=== PATIENT | female | born 1945 | race Caucasian/White ===

== ENCOUNTER → 2016-12-31 | Outpatient (CLI) | payer MEDICARE ==
--- NOTE | 2016-12-31 07:58 | US ---
EXAMINATION TYPE: US abdomen complete DATE OF EXAM: 12/31/2016 7:41 AM COMPARISON: NONE CLINICAL HISTORY: 71-year-old female R10.84 ABD PAIN. Mid abdominal pain after meals; smoker. TECHNIQUE: Multiple sonographic images of the abdomen are obtained. FINDINGS: EXAM MEASUREMENTS: Liver Length: 14.5 cm Gallbladder Wall: 0.2 cm CBD: 0.3 cm Spleen: 8.1 cm Right Kidney: 11.4 x 5.6 x 4.5 cm Left Kidney: 10.6 x 5.7 x 5.1 cm Pancreas: No gross abnormality. Liver: There is a 1 cm cyst within the left hepatic lobe. In addition, there is a 9 mm echogenic fo cus in the posterior right hepatic lobe that shows some through transmission most typical of a halle ioma Gallbladder: No abnormal gallbladder distention, wall thickening, pericholecystic fluid, or shadowin g calculi. Evidence for sonographic Rodriguez's sign: No CBD: wnl Spleen: wnl Right Kidney: No hydronephrosis. At the midpole, there is a 1 cm echogenic area with some posterior shadowing. Left Kidney: No hydronephrosis Upper IVC: wnl Abd Aorta: No AAA. Atherosclerotic calcification noted throughout. IMPRESSION: 1. A 1 cm hyperechoic lesion within the posterior right liver lobe shows some through-transmission. T his probably represents a benign hemangioma. 2. There is an additional 1 cm echogenic area in the midpole right kidney that shows some posterior s hadowing. A central calculus and an echogenic lesion such as an AML are both in the differential. RCC can uncommonly present as an echogenic lesion. Consider renal mass protocol CT to further evaluate.
== END | disposition home or self-care (01) ==
LOC: RADUSWWP 06:48
PROVIDERS: ATTEND Internal Medicine
DX: R10.84 Generalized abdominal pain (principal)
CPT/HCPCS: 76700

== ENCOUNTER 2017-01-21 18:46 | Emergency (ER) | payer MEDICARE ==
[2017-01-21] MEDS ORDERED: SODIUM CHLORIDE 0.9% 1,000 ML IV ONE (19:14)
[2017-01-21] MEDS ORDERED: KETOROLAC 30 MG/ML 1 ML VIAL IVP STA (19:14)
[2017-01-21 19:46] LABS: Basophils % (A) 0 %; CH 33.5; CHCM 33.8; Eosinophils # (A) 0.3 k/uL (0-0.7); Eosinophils % (A) 4 %; HCT 40.3 % (34.0-46.0); HDW 2.07; HGB 13.8 gm/dL (11.4-16.0); Luc % (Auto) 2; Lymphocytes % (A) 24 %; MCHC 34.2 g/dL (31.0-37.0); MCV 99.4 fL (80.0-100.0); Mean Platelet Volume 6.6; Monocytes # (A) 0.6 k/uL (0-1.0); Monocytes % (A) 8 %; Neutrophils # (A) 5.2 k/uL (1.3-7.7); Neutrophils % (A) 62 %; RBC 4.06 m/uL (3.80-5.40); RDW 11.7 % (11.5-15.5); WBC 8.4 k/uL (3.8-10.6); WBC (Perox) 8.44
[2017-01-21 19:55] LABS: Appearance,Urine Cloudy (Clear); Bacteria,Urine Rare /hpf; Bilirubin,Urine Negative (Negative); Glucose,Urine (UA) Negative (Negative); Ketones,Urine Negative (Negative); Leukocyte Esterase,Urine Large (Negative); Mucus,Urine Rare /hpf; Nitrite,Urine Negative (Negative); Partial Thromboplastin Time 24.3 sec (22.0-30.0); Particle Count 9986; Protein,Urine Trace (Negative); RBC,Urine 2 /hpf (0-5); Specific Gravity,Urine 1.021 (1.001-1.035); Squamous Epithelial Cell,Urine 1 /hpf (0-4); UA Billing (MACRO vs. MICRO) MICRO; WBC,Urine 59 /hpf (0-5)
--- NOTE | 2017-01-21 19:56 | XR ---
EXAMINATION TYPE: XR chest 2V DATE OF EXAM: 01/21/2017 7:49 PM COMPARISON: NONE INDICATION: Breast cancer hypertension TECHNIQUE: Single frontal view of the chest is obtained. FINDINGS: The heart size is normal. The pulmonary vasculature is slightly prominent. The lungs are clear. Left axillary clips are present. IMPRESSION: 1. Mild vascular prominence. 2. No suspicious consolidation
[2017-01-21 19:57] LABS: ALT 14 U/L (9-52); AST 18 U/L (14-36); Alkaline Phosphatase 112 U/L (38-126); Amylase 78 U/L (30-110); Anion Gap 11 mmol/L; Blood Urea Nitrogen 18 mg/dL (7-17); Calcium 9.4 mg/dL (8.4-10.2); Carbon Dioxide 28 mmol/L (22-30); Chloride 99 mmol/L (98-107); Glucose 109 mg/dL (74-99); Magnesium 1.9 mg/dL (1.6-2.3); Non-African American GFR(MDRD) >60 (>60 ml/min/1.73 sqM); Potassium 3.9 mmol/L (3.5-5.1); Sodium 138 mmol/L (137-145); Total Bilirubin 0.6 mg/dL (0.2-1.3); Total Protein 7.8 g/dL (6.3-8.2)
--- NOTE | 2017-01-21 20:47 | ED ---
Arrhythmia/Palpitations HPI - General Chief Complaint: Arrhythmia/Palpitations Stated Complaint: chest pain Time Seen by Provider: 01/21/17 18:58 Source: patient Mode of arrival: wheelchair Limitations: no limitations - History of Present Illness Initial Comments: Is a 71-year-old female who presents him in [facility] for palpitations. She states that she feels like her heart is pounding beneath her left rib. She does not describe it as a tightness. She denies any shortness of breath but feels like it itches pounding. She's had this on and off for the last 4-6 months. She is seen her primary doctor about it before and was diagnosed with urinary tract infection. She denies any dysuria or hematuria. No flank pain. No lightheadedness or dizziness. No nausea or vomiting. She denies any other complaints currently. - Related Data Home Medications Medication Instructions Recorded Confirmed Aspirin [Adult Low Dose Aspirin EC] 81 mg PO DAILY 05/13/16 01/21/17 Lisinopril [Zestril] 20 mg PO DAILY 01/21/17 01/21/17 Previous Rx's Medication Instructions Recorded Naproxen [Naprosyn] 500 mg PO Q12HR PRN #30 tab 01/21/17 Sulfamethox-Tmp 800-160Mg [Bactrim 1 tab PO Q12HR #14 tab 01/21/17 DS 800-160 mg] Allergies Allergy/AdvReac Type Severity Reaction Status Date / Time No Known Allergies Allergy Verified 01/21/17 19:15 Review of Systems ROS Statement: Those systems with pertinent positive or pertinent negative responses have been documented in the HPI. ROS Other: All systems not noted in ROS Statement are negative. Past Medical History Past Medical History: Cancer, Hypertension Additional Past Medical History / Comment(s): hx breast cancer History of Any Multi-Drug Resistant Organisms: None Reported Past Surgical History: Breast Surgery Additional Past Surgical History / Comment(s): left breast lumpectomy, aj cataracts Past Anesthesia/Blood Transfusion Reactions: No Reported Reaction Past Psychological History: No Psychological Hx Reported Smoking Status: Current every day smoker Past Alcohol Use History: None Reported Additional Past Alcohol Use History / Comment(s): smokes 1 PPD for 30 yrs Past Drug Use History: None Reported - Past Family History Father Family Medical History: Cancer General Exam - General Exam Comments Initial Comments: Constitutional: Awake alert Appears comfortable Head: Normocephalic atraumatic Eyes: no conjunctival injection No scleral icterus EOMI Neck: No JVD Supple Heart: Regular rate rhythm normal S1-S2 no murmurs Lungs: Clear to auscultation bilaterally No wheezing No rales Abdomen: Soft nondistended nontender Extremities: Non edematous DP pulses intact Radial pulses intact Neuro: A&Ox3 No focal neurologic deficits Psych: Appropriate mood and affect Limitations: no limitations Course Vital Signs 01/21/17 01/21/17 18:50 21:00 Temperature 97.9 F 97.2 F L Pulse Rate 106 H 73 Respiratory 20 16 Rate Blood Pressure 129/65 132/62 O2 Sat by Pulse 96 98 Oximetry EKG Findings - EKG Comments: EKG Findings:: EKG showing a sinus rhythm with a rate of 86. No abnormal ST segment changes or T-wave inversions. QTC is 440. Other intervals are normal. No ectopy. Medical Decision Making - Medical Decision Making Is a 71-year-old female presented for palpitations. Blood work was reviewed and unremarkable for elevated troponin or any other cardiac Amount. EKG was unremarkable. The patient did have a UA that was consistent with urinary tract infection. I'm going to start on Bactrim twice a day. I also gave her Naprosyn because Toradol seemed to improve her symptoms on the emergency department. Told to follow-up with Dr. Amos. She has worsening symptoms she can return emergency Department. All questions were answered. - Lab Data Result diagrams: 01/21/17 19:36 01/21/17 19:36 Lab Results 01/21/17 01/21/17 01/21/17 Range/Units 19:14 19:36 19:36 WBC 8.4 (3.8-10.6) k/uL RBC 4.06 (3.80-5.40) m/uL Hgb 13.8 (11.4-16.0) gm/dL Hct 40.3 (34.0-46.0) % MCV 99.4 (80.0-100.0) fL MCH 34.0 (25.0-35.0) pg MCHC 34.2 (31.0-37.0) g/dL RDW 11.7 (11.5-15.5) % Plt Count 321 (150-450) k/uL Neutrophils % 62 % Lymphocytes % 24 % Monocytes % 8 % Eosinophils % 4 % Basophils % 0 % Neutrophils # 5.2 (1.3-7.7) k/uL Lymphocytes # 2.0 (1.0-4.8) k/uL Monocytes # 0.6 (0-1.0) k/uL Eosinophils # 0.3 (0-0.7) k/uL Basophils # 0.0 (0-0.2) k/uL PT 10.0 (9.0-12.0) sec INR 1.0 (<1.1) APTT 24.3 (22.0-30.0) sec Sodium (137-145) mmol/L Potassium (3.5-5.1) mmol/L Chloride (98-107) mmol/L Carbon Dioxide (22-30) mmol/L Anion Gap mmol/L BUN (7-17) mg/dL Creatinine (0.52-1.04) mg/dL Est GFR (MDRD) Af Amer (>60 ml/min/1.73 sqM) Est GFR (MDRD) Non-Af (>60 ml/min/1.73 sqM) Glucose (74-99) mg/dL Calcium (8.4-10.2) mg/dL Magnesium (1.6-2.3) mg/dL Total Bilirubin (0.2-1.3) mg/dL AST (14-36) U/L ALT (9-52) U/L Alkaline Phosphatase (38-126) U/L CK-MB (CK-2) 0.4 (0.0-2.4) ng/mL Total Protein (6.3-8.2) g/dL Albumin (3.5-5.0) g/dL Amylase (30-110) U/L Lipase (23-300) U/L Urine Color Urine Appearance (Clear) Urine pH (5.0-8.0) Ur Specific [place] (1.001-1.035) Urine Protein (Negative) Urine Glucose (UA) (Negative) Urine Ketones (Negative) Urine Blood (Negative) Urine Nitrite (Negative) Urine Bilirubin (Negative) Urine Urobilinogen (<2.0) mg/dL Ur Leukocyte Esterase (Negative) Urine RBC (0-5) /hpf Urine WBC (0-5) /hpf Ur Squamous Epith Cells (0-4) /hpf Urine Bacteria (None) /hpf Hyaline Casts (0-2) /lpf Urine Mucus (None) /hpf Urine Opiates Screen (NotDetected) Ur Oxycodone Screen (NotDetected) Urine Methadone Screen (NotDetected) Ur Propoxyphene Screen (NotDetected) Ur Barbiturates Screen (NotDetected) U Tricyclic Antidepress (NotDetected) Ur Phencyclidine Scrn (NotDetected) Ur Amphetamines Screen (NotDetected) U Methamphetamines Scrn (NotDetected) U Benzodiazepines Scrn (NotDetected) Urine Cocaine Screen (NotDetected) U Marijuana (THC) Screen (NotDetected) 01/21/17 01/21/17 Range/Units 19:36 19:36 WBC (3.8-10.6) k/uL RBC (3.80-5.40) m/uL Hgb (11.4-16.0) gm/dL Hct (34.0-46.0) % MCV (80.0-100.0) fL MCH (25.0-35.0) pg MCHC (31.0-37.0) g/dL RDW (11.5-15.5) % Plt Count (150-450) k/uL Neutrophils % % Lymphocytes % % Monocytes % % Eosinophils % % Basophils % % Neutrophils # (1.3-7.7) k/uL Lymphocytes # (1.0-4.8) k/uL Monocytes # (0-1.0) k/uL Eosinophils # (0-0.7) k/uL Basophils # (0-0.2) k/uL PT (9.0-12.0) sec INR (<1.1) APTT (22.0-30.0) sec Sodium 138 (137-145) mmol/L Potassium 3.9 (3.5-5.1) mmol/L Chloride 99 (98-107) mmol/L Carbon Dioxide 28 (22-30) mmol/L Anion Gap 11 mmol/L BUN 18 H (7-17) mg/dL Creatinine 0.78 (0.52-1.04) mg/dL Est GFR (MDRD) Af Amer >60 (>60 ml/min/1.73 sqM) Est GFR (MDRD) Non-Af >60 (>60 ml/min/1.73 sqM) Glucose 109 H (74-99) mg/dL Calcium 9.4 (8.4-10.2) mg/dL Magnesium 1.9 (1.6-2.3) mg/dL Total Bilirubin 0.6 (0.2-1.3) mg/dL AST 18 (14-36) U/L ALT 14 (9-52) U/L Alkaline Phosphatase 112 (38-126) U/L CK-MB (CK-2) (0.0-2.4) ng/mL Total Protein 7.8 (6.3-8.2) g/dL Albumin 4.6 (3.5-5.0) g/dL Amylase 78 (30-110) U/L Lipase 64 (23-300) U/L Urine Color Yellow Urine Appearance Cloudy H (Clear) Urine pH 5.0 (5.0-8.0) Ur Specific [place] 1.021 (1.001-1.035) Urine Protein Trace H (Negative) Urine Glucose (UA) Negative (Negative) Urine Ketones Negative (Negative) Urine Blood Negative (Negative) Urine Nitrite Negative (Negative) Urine Bilirubin Negative (Negative) Urine Urobilinogen 4.0 (<2.0) mg/dL Ur Leukocyte Esterase Large H (Negative) Urine RBC 2 (0-5) /hpf Urine WBC 59 H (0-5) /hpf Ur Squamous Epith Cells 1 (0-4) /hpf Urine Bacteria Rare H (None) /hpf Hyaline Casts 30 H (0-2) /lpf Urine Mucus Rare H (None) /hpf Urine Opiates Screen Not Detected (NotDetected) Ur Oxycodone Screen Not Detected (NotDetected) Urine Methadone Screen Not Detected (NotDetected) Ur Propoxyphene Screen Not Detected (NotDetected) Ur Barbiturates Screen Not Detected (NotDetected) U Tricyclic Antidepress Not Detected (NotDetected) Ur Phencyclidine Scrn Not Detected (NotDetected) Ur Amphetamines Screen Not Detected (NotDetected) U Methamphetamines Scrn Not Detected (NotDetected) U Benzodiazepines Scrn Not Detected (NotDetected) Urine Cocaine Screen Not Detected (NotDetected) U Marijuana (THC) Screen Not Detected (NotDetected) Disposition Clinical Impression: UTI (urinary tract infection), Palpitations Disposition: HOME SELF-CARE Condition: Stable Instructions: Palpitations (ED), Urinary Tract Infection in Women (ED) Prescriptions: Naproxen [Naprosyn] 500 mg PO Q12HR PRN #30 tab PRN Reason: Pain Sulfamethox-Tmp 800-160Mg [Bactrim DS 800-160 mg] 1 tab PO Q12HR #14 tab Referrals: Kendall Owen MD [Primary Care Provider] - 1-2 days
[2017-01-21 21:01] VITALS: BP 132/62; PULSE 73; RESP 16; TEMP 97.2
== END 2017-01-21 21:01 | disposition home or self-care (01) ==
LOC: EC 18:46
DX: R00.2 Palpitations (principal); R07.9 Chest pain, unspecified; I10 Essential (primary) hypertension; F17.200 Nicotine dependence, unspecified, uncomplicated; Z79.82 Long term (current) use of aspirin; Z79.899 Other long term (current) drug therapy
CPT/HCPCS: 36415; 93005; 80053; 82150; 82553; 83690; 83735; 85025; 85610; 85730; 81001; 80306; 71020; 99285; 96374; 96361; J1885

== ENCOUNTER 2019-01-27 10:31 | Emergency (ER) | payer MEDICARE ==
--- NOTE | 2019-01-27 11:25 | ED ---
General Adult HPI - General Chief complaint: Abdominal Pain Stated complaint: abdominal pain Time Seen by Provider: 01/27/19 11:12 Source: patient, RN notes reviewed, old records reviewed Mode of arrival: ambulatory Limitations: no limitations - History of Present Illness Initial comments: 73-year-old female presenting with 1 week of upper abdominal pain and back pain. Patient's symptoms began one week ago, she was seen by her primary care physician. She was diagnosed with urinary tract infection and kidney infection. She was placed on Macrobid. She states over the past week she has been on antibiotics but has failed to improve. She describes bilateral upper abdominal pain and back pain. She has no chronic medical palms, no hypertension, no diabetes, no kidney disease. She is a current smoker. She denies changes to her bowels, no vomiting or diarrhea. No reported constipation. No dysuria or hematuria. Denies chest pain. Denies dyspnea. - Related Data Home Medications Medication Instructions Recorded Confirmed Lisinopril [Zestril] 20 mg PO DAILY 01/27/19 01/27/19 Nitrofurantoin Monohyd/M-Cryst 100 mg PO Q12HR 01/27/19 01/27/19 [Macrobid] Previous Rx's Medication Instructions Recorded HYDROcodone/APAP 5-325MG [[place] 1 tab PO Q6HR PRN #12 tab 01/27/19 5-325] Omeprazole [PriLOSEC] 20 mg PO AC-BID #60 cap 01/27/19 Allergies Allergy/AdvReac Type Severity Reaction Status Date / Time No Known Allergies Allergy Verified 01/27/19 11:26 Review of Systems ROS Statement: Those systems with pertinent positive or pertinent negative responses have been documented in the HPI. ROS Other: All systems not noted in ROS Statement are negative. Past Medical History Past Medical History: Cancer, Hypertension Additional Past Medical History / Comment(s): hx breast cancer History of Any Multi-Drug Resistant Organisms: None Reported Past Surgical History: Breast Surgery Additional Past Surgical History / Comment(s): left breast lumpectomy, aj cataracts Past Anesthesia/Blood Transfusion Reactions: No Reported Reaction Past Psychological History: No Psychological Hx Reported Smoking Status: Current every day smoker Past Alcohol Use History: None Reported Past Drug Use History: None Reported - Past Family History Father Family Medical History: Cancer General Exam Limitations: no limitations General appearance: alert, in no apparent distress Head exam: Present: atraumatic, normocephalic Eye exam: Present: normal appearance, PERRL ENT exam: Present: normal exam Neck exam: Present: normal inspection. Absent: meningismus Respiratory exam: Present: normal lung sounds bilaterally. Absent: respiratory distress Cardiovascular Exam: Present: regular rate, normal rhythm GI/Abdominal exam: Present: soft. Absent: distended, tenderness, guarding Extremities exam: Present: normal inspection, normal capillary refill. Absent: pedal edema, calf tenderness Neurological exam: Present: alert, oriented X3, CN II-XII intact. Absent: motor sensory deficit Psychiatric exam: Present: normal affect, normal mood Skin exam: Present: warm, dry, intact. Absent: cyanosis, diaphoretic Course Vital Signs 01/27/19 11:07 Temperature 97.7 F Pulse Rate 95 Respiratory 18 Rate Blood Pressure 149/81 O2 Sat by Pulse 98 Oximetry - Reevaluation(s) Reevaluation #1: 01/27/19 14:02 Patient reevaluated, resting comfortably. Symptoms have improved. EKG Findings - EKG Comments: EKG Findings:: EKG: Sinus rhythm with occasional PVC, LVH, no ST segment elevation, rate of 87, IN interval 166, QRS duration 74, QTC 462 Medical Decision Making - Medical Decision Making 73-year-old female with epigastric abdominal pain. Symptoms have been ongoing for approximately one week. She has mild epigastric tenderness on exam. No rebound or guarding. Stable vitals. Workup in the emergency department reveals white blood cell count mildly elevated at 13.6, hemoglobin stable, normal electrolytes, normal liver enzymes. Troponin negative EKG nonischemic. Urinalysis negative for infection. X-ray negative for obstruction, there is a sclerotic lesion in the right femur. Patient will follow-up with her primary care physician regarding this finding. CT is obtained which is negative for acute intra-abdominal pathology. Patient offered observation with gastroenterology consultation. Patient declines, prefers outpatient follow-up. Will be prescribed proton pump inhibitor and pain medication. Please follow with primary care physician. Please return with worsening or changing symptoms. - Lab Data Result diagrams: 01/27/19 11:38 01/27/19 11:38 Lab Results 01/27/19 01/27/19 01/27/19 Range/Units 05:48 11:38 11:38 WBC 13.6 H (3.8-10.6) k/uL RBC 4.21 (3.80-5.40) m/uL Hgb 13.6 (11.4-16.0) gm/dL Hct 42.2 (34.0-46.0) % MCV 100.2 H (80.0-100.0) fL MCH 32.3 (25.0-35.0) pg MCHC 32.2 (31.0-37.0) g/dL RDW 13.1 (11.5-15.5) % Plt Count 349 (150-450) k/uL Neutrophils % 83 % Lymphocytes % 7 % Monocytes % 5 % Eosinophils % 3 % Basophils % 0 % Neutrophils # 11.2 H (1.3-7.7) k/uL Lymphocytes # 1.0 (1.0-4.8) k/uL Monocytes # 0.7 (0-1.0) k/uL Eosinophils # 0.4 (0-0.7) k/uL Basophils # 0.0 (0-0.2) k/uL PT (9.0-12.0) sec INR (<1.2) APTT (22.0-30.0) sec Sodium 138 (137-145) mmol/L Potassium 3.9 (3.5-5.1) mmol/L Chloride 102 (98-107) mmol/L Carbon Dioxide 28 (22-30) mmol/L Anion Gap 8 mmol/L BUN 14 (7-17) mg/dL Creatinine 0.51 L (0.52-1.04) mg/dL Est GFR (CKD-EPI)AfAm >90 (>60 ml/min/1.73 sqM) Est GFR (CKD-EPI)NonAf >90 (>60 ml/min/1.73 sqM) Glucose 109 H (74-99) mg/dL Plasma Lactic Acid [place] (0.7-2.0) mmol/L Calcium 9.9 (8.4-10.2) mg/dL Total Bilirubin 0.7 (0.2-1.3) mg/dL AST 17 (14-36) U/L ALT 22 (9-52) U/L Alkaline Phosphatase 93 (38-126) U/L Troponin I (0.000-0.034) ng/mL Total Protein 7.2 (6.3-8.2) g/dL Albumin 4.4 (3.5-5.0) g/dL Amylase 54 (30-110) U/L Lipase 32 (23-300) U/L Urine Color Dark Yellow Urine Appearance Clear (Clear) Urine pH 5.5 (5.0-8.0) Ur Specific [place] 1.015 (1.001-1.035) Urine Protein Negative (Negative) Urine Glucose (UA) Negative (Negative) Urine Ketones 1+ H (Negative) Urine Blood Negative (Negative) Urine Nitrite Negative (Negative) Urine Bilirubin Negative (Negative) Urine Urobilinogen <2.0 (<2.0) mg/dL Ur Leukocyte Esterase Trace H (Negative) Urine WBC 1 (0-5) /hpf Ur Squamous Epith Cells <1 (0-4) /hpf Urine Mucus Rare H (None) /hpf 01/27/19 01/27/19 01/27/19 Range/Units 11:38 11:38 11:38 WBC (3.8-10.6) k/uL RBC (3.80-5.40) m/uL Hgb (11.4-16.0) gm/dL Hct (34.0-46.0) % MCV (80.0-100.0) fL MCH (25.0-35.0) pg MCHC (31.0-37.0) g/dL RDW (11.5-15.5) % Plt Count (150-450) k/uL Neutrophils % % Lymphocytes % % Monocytes % % Eosinophils % % Basophils % % Neutrophils # (1.3-7.7) k/uL Lymphocytes # (1.0-4.8) k/uL Monocytes # (0-1.0) k/uL Eosinophils # (0-0.7) k/uL Basophils # (0-0.2) k/uL PT 9.6 (9.0-12.0) sec INR 0.9 (<1.2) APTT 24.3 (22.0-30.0) sec Sodium (137-145) mmol/L Potassium (3.5-5.1) mmol/L Chloride (98-107) mmol/L Carbon Dioxide (22-30) mmol/L Anion Gap mmol/L BUN (7-17) mg/dL Creatinine (0.52-1.04) mg/dL Est GFR (CKD-EPI)AfAm (>60 ml/min/1.73 sqM) Est GFR (CKD-EPI)NonAf (>60 ml/min/1.73 sqM) Glucose (74-99) mg/dL Plasma Lactic Acid [place] 1.1 (0.7-2.0) mmol/L Calcium (8.4-10.2) mg/dL Total Bilirubin (0.2-1.3) mg/dL AST (14-36) U/L ALT (9-52) U/L Alkaline Phosphatase (38-126) U/L Troponin I <0.012 (0.000-0.034) ng/mL Total Protein (6.3-8.2) g/dL Albumin (3.5-5.0) g/dL Amylase (30-110) U/L Lipase (23-300) U/L Urine Color Urine Appearance (Clear) Urine pH (5.0-8.0) Ur Specific [place] (1.001-1.035) Urine Protein (Negative) Urine Glucose (UA) (Negative) Urine Ketones (Negative) Urine Blood (Negative) Urine Nitrite (Negative) Urine Bilirubin (Negative) Urine Urobilinogen (<2.0) mg/dL Ur Leukocyte Esterase (Negative) Urine WBC (0-5) /hpf Ur Squamous Epith Cells (0-4) /hpf Urine Mucus (None) /hpf Disposition Clinical Impression: Abdominal pain Disposition: HOME SELF-CARE Instructions (If sedation given, give patient instructions): Abdominal Pain (ED) Prescriptions: HYDROcodone/APAP 5-325MG [[place] 5-325] 1 tab PO Q6HR PRN #12 tab PRN Reason: Pain Omeprazole [PriLOSEC] 20 mg PO AC-BID #60 cap Is patient prescribed a controlled substance at d/c from ED?: No Referrals: Kendall Owen MD [Primary Care Provider] - 1-2 days Peter Wright MD [STAFF PHYSICIAN] - 1-2 days Time of Disposition: 14:05
[2019-01-27 11:50] LABS: Basophils % (A) 0 %; Eosinophils # (A) 0.4 k/uL (0-0.7); Eosinophils % (A) 3 %; HCT 42.2 % (34.0-46.0); HGB 13.6 gm/dL (11.4-16.0); Lymphocytes % (A) 7 %; MCH 32.3 pg (25.0-35.0); MCHC 32.2 g/dL (31.0-37.0); MCV 100.2 fL (80.0-100.0); Mean Platelet Volume 7.1; Monocytes # (A) 0.7 k/uL (0-1.0); Monocytes % (A) 5 %; Neutrophils # (A) 11.2 k/uL (1.3-7.7); Neutrophils % (A) 83 %; Platelet Count 349 k/uL (150-450); RBC 4.21 m/uL (3.80-5.40); RDW 13.1 % (11.5-15.5); WBC 13.6 k/uL (3.8-10.6)
[2019-01-27 11:56] LABS: Appearance,Urine Clear (Clear); Bilirubin,Urine Negative (Negative); Blood,Urine Negative (Negative); Color,Urine Dark Yellow; Glucose,Urine (UA) Negative (Negative); Ketones,Urine 1+ (Negative); Leukocyte Esterase,Urine Trace (Negative); Mucus,Urine Rare /hpf; Nitrite,Urine Negative (Negative); PH, Urine 5.5 (5.0-8.0); Protein,Urine Negative (Negative); Specific Gravity,Urine 1.015 (1.001-1.035); Squamous Epithelial Cell,Urine <1 /hpf (0-4); Urobilinogen,Urine <2.0 mg/dL (<2.0); WBC,Urine 1 /hpf (0-5)
[2019-01-27 12:02] LABS: ALT 22 U/L (9-52); AST 17 U/L (14-36); Albumin 4.4 g/dL (3.5-5.0); Alkaline Phosphatase 93 U/L (38-126); Amylase 54 U/L (30-110); Anion Gap 8 mmol/L; Blood Urea Nitrogen 14 mg/dL (7-17); Calcium 9.9 mg/dL (8.4-10.2); Carbon Dioxide 28 mmol/L (22-30); Chloride 102 mmol/L (98-107); Glucose 109 mg/dL (74-99); Lipase 32 U/L (23-300); Potassium 3.9 mmol/L (3.5-5.1); Sodium 138 mmol/L (137-145); Total Bilirubin 0.7 mg/dL (0.2-1.3); Total Protein 7.2 g/dL (6.3-8.2)
[2019-01-27] MEDS ORDERED: PANTOPRAZOLE 40 MG/10 ML VIAL IVP STA (12:06)
[2019-01-27] MEDS ORDERED: SODIUM CHLORIDE 0.9% 500 ML 500 ML IV ONE (12:06)
[2019-01-27 12:11] LABS: INR 0.9 (<1.2); Partial Thromboplastin Time 24.3 sec (22.0-30.0); Prothrombin Time 9.6 sec (9.0-12.0)
[2019-01-27] MEDS ORDERED: MORPHINE SULFATE 4 MG/ML SYRINGE IVP STA (12:16)
--- NOTE | 2019-01-27 13:01 | XR ---
EXAMINATION TYPE: XR KUB DATE OF EXAM: 01/27/2019 12:45 PM CLINICAL HISTORY: Abdominal pain TECHNIQUE: Single upright image of the abdomen is obtained. COMPARISON: None. FINDINGS: There is a levoscoliosis of the lumbar spine. Severe multilevel degenerative changes of the lumbar spine are noted. Severe atherosclerosis is seen of the abdominal aorta and its branches. Exte nsive degenerative change of the right femoral acetabular joint and moderate of the left. Punctate ca lcifications overlying the renal shadows may represent renal arterial calcifications or nephrolithias is. No dilated large or small bowel. There is a sclerotic lesion with ill-defined borders (wide zone of transition) measuring 9 mm in the right intertrochanteric region. IMPRESSION: 1. Nonobstructive bowel gas pattern. 2. Calcifications overlying the renal shadows may represent renal arterial calcifications or calculi. 3. Right femoral sclerotic lesion is indeterminate. Comparison with any prior outside imaging for sta bility would be recommended or nuclear medicine bone scan.
--- NOTE | 2019-01-27 13:36 | CT ---
EXAMINATION TYPE: CT abdomen pelvis w con DATE OF EXAM: 01/27/2019 COMPARISON: None INDICATION: RUQ pain DLP: 487.4 mGycm, Automated exposure control for dose reduction was used. CONTRAST: 100 mL of Isovue 300. Study performed without Oral Contrast TECHNIQUE: Axial images were obtained from above the diaphragm to the pubic rami in the axial plane a t 5 mm thick sections. Reconstructed images are reviewed on the computer in the coronal plane. FINDINGS: Limited CT sections are obtained the lung bases. The lung bases are clear. CT ABDOMEN: Liver: There is a 0.9 cm hypodensity within the superior left lobe liver measuring 0 Hounsfield units compatible with a cyst. Additional ill-defined hypodensities in the lateral right mid liver which is nonspecific. Spleen: Normal Pancreas: Normal Adrenal glands: The adrenal glands are normal. Gallbladder: Normal Kidneys: No masses are evident. No hydronephrosis is present. No cysts are present. Delayed images were obtained through the kidneys, which remain unremarkable. Aorta: Vascular calcification is within the aorta. Inferior vena cava: Normal. CT PELVIS: Loops of bowel within the abdomen and pelvis are normal. Study is without oral contrast limiting bowel evaluation. Appendix: Normal as visualized. Urinary bladder: Distended. No suspicious abnormality. Genitourinary structures: Uterus appears within normal limits. Calcified fibroids are likely present on the right. Adnexal regions are clear. Osseous structures: Degenerative disc changes are through the lumbar spine. There is endplate scleros is at L4-5. IMPRESSIONS: 1. Suspected hepatic cysts. One is too small to classify as simple.
[2019-01-27 14:55] VITALS: BP 142/84; PULSE 80; RESP 16; TEMP 97.8
== END 2019-01-27 14:15 | disposition home or self-care (01) ==
LOC: EC 10:31
DX: D72.829 Elevated white blood cell count, unspecified (principal); M89.9 Disorder of bone, unspecified; M54.9 Dorsalgia, unspecified; I10 Essential (primary) hypertension; F17.200 Nicotine dependence, unspecified, uncomplicated; Z85.3 Personal history of malignant neoplasm of breast; Z90.12 Acquired absence of left breast and nipple; Z79.899 Other long term (current) drug therapy; Z53.29 Procedure and treatment not carried out because of patient's decision for other reasons
CPT/HCPCS: 36415; 93005; 80053; 82150; 83605; 83690; 84484; 85025; 85610; 85730; 81001; 74018; 74177; 99285; 96374; 96375; 96361; J2270; C9113; Q9967

== ENCOUNTER 2019-01-31 02:10 | Inpatient (IN) | payer MEDICARE ==
[2019-01-31] MEDS ORDERED: SODIUM CHLORIDE 0.9% 1,000 ML IV STA (02:11)
[2019-01-31] MEDS ORDERED: IPRATROPIUM-ALBUTEROL 3 ML NEB INHALATION STA (02:20)
[2019-01-31 02:36] LABS: HCT 43.2 % (34.0-46.0); HGB 14.1 gm/dL (11.4-16.0); MCHC 32.5 g/dL (31.0-37.0); MCV 101.4 fL (80.0-100.0); Mean Platelet Volume 6.8; Platelet Count 358 k/uL (150-450); RBC 4.26 m/uL (3.80-5.40); RDW 12.3 % (11.5-15.5); WBC 15.6 k/uL (3.8-10.6)
[2019-01-31 02:48] LABS: INR 0.9 (<1.2); Partial Thromboplastin Time 22.5 sec (22.0-30.0); Prothrombin Time 9.6 sec (9.0-12.0)
[2019-01-31 02:56] LABS: Anion Gap 10 mmol/L; Blood Urea Nitrogen 10 mg/dL (7-17); Calcium 9.9 mg/dL (8.4-10.2); Carbon Dioxide 26 mmol/L (22-30); Chloride 100 mmol/L (98-107); Glucose 127 mg/dL (74-99); Lipase 39 U/L (23-300); Sodium 136 mmol/L (137-145)
[2019-01-31 03:03] LABS: Potassium 4.2 mmol/L (3.5-5.1)
[2019-01-31 03:04] LABS: ALT 13 U/L (9-52); AST 24 U/L (14-36); Albumin 4.6 g/dL (3.5-5.0); Alkaline Phosphatase 83 U/L (38-126); Amylase <30 U/L (30-110); Total Protein 7.8 g/dL (6.3-8.2)
--- NOTE | 2019-01-31 03:24 | XR ---
EXAM: XR Chest, 2 Views CLINICAL HISTORY: ADALID TECHNIQUE: Frontal and lateral views of the chest. COMPARISON: 01/21/17 FINDINGS: Lungs: Mild diffuse interstitial opacities in both lungs. Mild centrilobular pulmonary emphysema. 9 x 20 mm opacity over lateral middle lung zone is new, may suggest underlying pulmonary nodule. Pleural space: Suspect small bilateral pleural effusion/thickening. No pneumothorax. Heart: Unremarkable. No cardiomegaly. Mediastinum: Unremarkable. Bones/joints: Osteopenia. Moderate degenerative changes. Soft tissues: Left axillary clips. IMPRESSION: 1. Bilateral pulmonary edema and less likely pneumonia. 2. Mild centrilobular pulmonary emphysema. 3. 9 x 20 mm opacity over lateral middle lung zone is new, may suggest underlying pulmonary nodule. Followup resolution is recommended. Alternatively, this can be further with chest CT in a non-urgent setting.
--- NOTE | 2019-01-31 03:25 | XR ---
EXAM: XR Abdomen, 1 View CLINICAL HISTORY: abdominal pain TECHNIQUE: Frontal supine view of the abdomen/pelvis. COMPARISON: No relevant prior studies available. FINDINGS: Gastrointestinal tract: Moderate to large amount of stool in the colon. Bones/joints: Osteopenia. Moderate degenerative changes. Mild lower lumbar scoliosis convexed to the left. IMPRESSION: No acute findings.
[2019-01-31] MEDS ORDERED: MORPHINE SULFATE 4 MG/ML SYRINGE IVP STA (03:32)
--- NOTE | 2019-01-31 03:33 | ED ---
General Adult HPI - General Chief complaint: Abdominal Pain Stated complaint: Abd Pain Time Seen by Provider: 01/31/19 02:11 Source: patient, EMS Mode of arrival: EMS Limitations: no limitations - History of Present Illness Initial comments: Katheryn is a pleasant 73-year-old female with a past medical history of breast cancer, hypertension who presents to the emergency department today via EMS for evaluation of abdominal pain and difficulty breathing. Patient was seen and evaluated in our hospital on for abdominal pain at which time she had a computed tomography scan and labs she stayed overnight was discharged home with oral narcotic pain medication. Patient reports she's been doing okay since that time. This evening her abdominal pain returned so she decided to take one of her narcotic pain medications. She reports that despite taking that she began to feel worse and then begin to have some trouble breathing. Patient thought it was because the pain in her stomach. Upon EMS arrival patient was noted be somewhat tachycardic tachypneic but without wheezing. She was given 4 mg of morphine in route to the hospital for treatment of her pain and transported to the ER. Arrival to the ER patient reports significant difficulty breathing. Patient isn't every day smoker she does have inhalers at home but denies any previous history of COPD. Patient reports feeling like she can't breathe and her heart was racing. - Related Data Home Medications Medication Instructions Recorded Confirmed Lisinopril [Zestril] 20 mg PO DAILY 01/27/19 01/27/19 Nitrofurantoin Monohyd/M-Cryst 100 mg PO Q12HR 01/27/19 01/27/19 [Macrobid] Previous Rx's Medication Instructions Recorded HYDROcodone/APAP 5-325MG [[place] 1 tab PO Q6HR PRN #12 tab 01/27/19 5-325] Omeprazole [PriLOSEC] 20 mg PO AC-BID #60 cap 01/27/19 Allergies Allergy/AdvReac Type Severity Reaction Status Date / Time No Known Allergies Allergy Verified 01/27/19 11:26 Review of Systems ROS Statement: Those systems with pertinent positive or pertinent negative responses have been documented in the HPI. ROS Other: All systems not noted in ROS Statement are negative. Past Medical History Past Medical History: Cancer, Hypertension Additional Past Medical History / Comment(s): hx breast cancer History of Any Multi-Drug Resistant Organisms: None Reported Past Surgical History: Breast Surgery Additional Past Surgical History / Comment(s): left breast lumpectomy, aj cataracts Past Anesthesia/Blood Transfusion Reactions: No Reported Reaction Past Psychological History: No Psychological Hx Reported Smoking Status: Current every day smoker Past Alcohol Use History: None Reported Past Drug Use History: None Reported - Past Family History Father Family Medical History: Cancer General Exam - General Exam Comments Initial Comments: GENERAL: Chronically ill-appearing thin female HENT: Normocephalic, Atraumatic. Neck is soft and supple. No significant lymphadenopathy is noted. Oropharynx is clear. Moist mucous membranes. Neck has full range of motion without eliciting any pain. EYES: The sclera were anicteric and conjunctiva were pink and moist. Extraocular movements were intact and pupils were equal round and reactive to light. Eyelids were unremarkable. PULMONARY: Tachypnea, wheezing in all lung rosales CARDIOVASCULAR: Tachycardic, regular ABDOMEN: Soft and nontender with normal bowel sounds. SKIN: Skin is clear with no lesions or rashes and otherwise unremarkable. NEUROLOGIC: Patient is alert and oriented x3. Cranial nerves II through XII are grossly intact. Motor and sensory are also intact. Normal speech, volume and content. Symmetrical smile. MUSCULOSKELETAL: Normal extremities with adequate strength and full range of motion. No lower extremity swelling or edema. No calf tenderness. LYMPHATICS: No significant lymphadenopathy is noted PSYCHIATRIC: Normal psychiatric evaluation. Limitations: no limitations Course Vital Signs 01/31/19 01/31/19 01/31/19 02:16 02:27 02:36 Temperature 97.0 F L Pulse Rate 116 H 118 H 120 H Respiratory 26 H 18 18 Rate Blood Pressure 129/80 O2 Sat by Pulse 94 L Oximetry 01/31/19 01/31/19 01/31/19 02:43 03:39 04:10 Temperature 97.2 F L Pulse Rate 130 H 115 H 144 H Respiratory 24 24 30 H Rate Blood Pressure 134/88 138/95 134/89 O2 Sat by Pulse 96 91 L 94 L Oximetry 01/31/19 01/31/19 01/31/19 04:22 04:28 04:43 Temperature 97.7 F Pulse Rate 147 H 142 H 144 H Respiratory 26 H 18 24 Rate Blood Pressure 130/110 136/95 O2 Sat by Pulse 95 95 95 Oximetry 01/31/19 01/31/19 01/31/19 04:50 04:55 04:58 Temperature 97.3 F L Pulse Rate 96 106 H Respiratory 24 24 24 Rate Blood Pressure 87/69 82/54 O2 Sat by Pulse 96 95 Oximetry 01/31/19 01/31/19 01/31/19 05:00 05:10 05:20 Temperature Pulse Rate 109 H 100 96 Respiratory 26 H 20 19 Rate Blood Pressure 88/72 121/85 74/53 O2 Sat by Pulse 80 L 100 100 Oximetry 01/31/19 01/31/19 01/31/19 05:30 05:50 06:01 Temperature 97.3 F L 97.3 F L Pulse Rate 91 90 94 Respiratory 20 21 23 Rate Blood Pressure 69/53 65/46 85/42 O2 Sat by Pulse 98 93 L 94 L Oximetry 01/31/19 01/31/19 01/31/19 06:24 06:33 06:45 Temperature 97.4 F L 97.4 F L Pulse Rate 82 91 92 Respiratory 27 H 24 20 Rate Blood Pressure 88/75 77/61 83/62 O2 Sat by Pulse 91 L 95 93 L Oximetry - Reevaluation(s) Reevaluation #1: I was called back to the patient's room due to recurrent episode of wheezing shortness of breath and hypoxia. Patient began complaining that she couldn't breathe and that her left arm was tingling. This happened shortly after receiving morphine at this time I do suspect the patient is actually having ALLERGIC reaction to the narcotic pain medication. Solu-Medrol Pepcid and Benadryl were ordered. Patient was placed on BiPAP with albuterol. Despite these interventions patient reported worsening tingling and then came flaccid in her left arm. A code stroke was activated. 01/31/19 04:34 Reevaluation #2: Despite BiPAP support patient was becoming increasingly altered there is concerned she was unable to protect her airway decision was made to intubate. Patient is also noted become hypotensive despite receiving IV fluid bolus she remained hypotensive the decision was made to place a right femoral central line. Patient tolerated the procedure well. Levothroid was initiated. 01/31/19 06:13 Procedures - Central Line Placement Right Femoral Consent Obtained: emergent situation Patient Placed on Monitor/Pulse Ox: Yes MD Prep: mask, gown, gloves Central Line Prep: Chlorhexidine scrub Ultrasound Used for Placement: Yes Central Line Lumen Inserted: triple Bloods Obtained for Lab: Yes Central Line Position: good blood return, all ports aspirated, flushed, capped, sutured in place with 3-0 nylon Dressing Applied: sterile gauze/tape Patient Tolerated Procedure: well Complications: none - Intubation Sedative: Etomidate Laryngoscope: Tree Size: 4 ET Tube Size: 7.5 ET Tube Uncuffed: No Tube Secured Depth (cm): 24 Tube Secured Location: lips Patient Tolerated Procedure: well Intubation Complications: none Medical Decision Making - Medical Decision Making The patient was seen and evaluated upon arrival in the emergency department. Patient had called EMS for abdominal pain in the epigastrium. Patient was evaluated for this complaint last week and discharged from the hospital. Upon arrival hospital patient appears to be having a COPD exacerbation, patient denies any formal diagnosis but is a smoker. She is wheezing having shortness of breath and is mildly tachycardic. Labs and imaging were ordered. Labs resulted with a mildly elevated lactic acid and a troponin is 0.06, patient does have a mild leukocytosis no other significant abnormalities were noted Chest x-ray for possible infiltrate versus mass, given the tachycardia and shortness of breath CT pulmonary embolism study was ordered Patient again complaining of epigastric abdominal pain, patient and requesting pain medications. Additional dose of morphine was ordered. I return to the patient's bedside for reevaluation after receiving the morphine. Patient is again tachypneic wheezing and tachycardic. Reviewing patient's responses they now feel that the patient is likely suffering from an ALLERGIC reaction to the morphine. As her wheezing and shortness of breath have occurred after each administration of narcotics today. Patient will be treated as an ALLERGIC reaction in addition she'll be placed on BiPAP. Patient is beginning to complain of tingling in her left arm initially thought this was secondary to hyperventilation however despite BiPAP support patient's left arm became flaccid and that her left leg. Patient was becoming somnolent. A code stroke was activated CT and CT angiogram of the brain were ordered and performed. Patient was also noted to be hypotensive. Patient was transferred from CT suite to resuscitation bay for further resuscitation. Patient care was discussed with neuro interventional his doctor neurovascular given the complicated history he does not feel the patient is a candidate for TPA and suspects that this may be metabolic in nature recommends Denaera for seizure prophylaxis and optimization of the patient's labs. Patient remained hypertensive despite IV fluid resuscitation and decision was made to place a central line for levophed infusion Right femoral central line was placed At this time the patient has had a CT of the brain chest and abdomen in the past week there is no acute pathology identified on any of these. Patient only has mild lab abnormalities aside from acidosis, mild elevation of her lactic acid and mild elevation of her troponin. At this time he do not have explanation for her current condition however we will plan to admit to the ICU for further monitoring. Patient care was discussed with Dr. Diaz in the television maintenance man on care who accepts the patient to the ICU. Repeat troponin was elevated at 0.7, these results were discussed with cardiology on-call Dr. Escudero who will evaluate the patient and follow-up on trending troponins. - Lab Data Result diagrams: 01/31/19 02:20 01/31/19 05:52 Lab Results 01/31/19 01/31/19 01/31/19 Range/Units 02:20 02:20 02:20 WBC 15.6 H (3.8-10.6) k/uL RBC 4.26 (3.80-5.40) m/uL Hgb 14.1 (11.4-16.0) gm/dL Hct 43.2 (34.0-46.0) % MCV 101.4 H (80.0-100.0) fL MCH 33.0 (25.0-35.0) pg MCHC 32.5 (31.0-37.0) g/dL RDW 12.3 (11.5-15.5) % Plt Count 358 (150-450) k/uL Neutrophils % (Manual) 75 % Band Neutrophils % 9 % Lymphocytes % (Manual) 13 % Monocytes % (Manual) 3 % Neutrophils # (Manual) 13.10 H (1.3-7.7) k/uL Lymphocytes # (Manual) 2.03 (1.0-4.8) k/uL Monocytes # (Manual) 0.47 (0-1.0) k/uL Nucleated RBCs 0 (0-0) /100 WBC Manual Slide Review Performed PT (9.0-12.0) sec INR (<1.2) APTT (22.0-30.0) sec Sample Site ABG pH (7.35-7.45) ABG pCO2 (35-45) mmHg ABG pO2 (83-108) mmHg ABG HCO3 (21-25) mmol/L ABG Total CO2 (19-24) mmol/L ABG O2 Saturation (94-97) % ABG Base Excess mmol/L Sonny Test FiO2 % Sodium 136 L (137-145) mmol/L Potassium 4.2 (3.5-5.1) mmol/L Chloride 100 (98-107) mmol/L Carbon Dioxide 26 (22-30) mmol/L Anion Gap 10 mmol/L BUN 10 (7-17) mg/dL Creatinine 0.43 L (0.52-1.04) mg/dL Est GFR (CKD-EPI)AfAm >90 (>60 ml/min/1.73 sqM) Est GFR (CKD-EPI)NonAf >90 (>60 ml/min/1.73 sqM) Glucose 127 H (74-99) mg/dL Lactic Ac Sepsis Rflx Plasma Lactic Acid [place] 2.2 H* (0.7-2.0) mmol/L Calcium 9.9 (8.4-10.2) mg/dL Total Bilirubin 1.0 (0.2-1.3) mg/dL AST 24 (14-36) U/L ALT 13 (9-52) U/L Alkaline Phosphatase 83 (38-126) U/L Troponin I (0.000-0.034) ng/mL Total Protein 7.8 (6.3-8.2) g/dL Albumin 4.6 (3.5-5.0) g/dL Amylase <30 L (30-110) U/L Lipase 39 (23-300) U/L Urine Color Urine Appearance (Clear) Urine pH (5.0-8.0) Ur Specific [place] (1.001-1.035) Urine Protein (Negative) Urine Glucose (UA) (Negative) Urine Ketones (Negative) Urine Blood (Negative) Urine Nitrite (Negative) Urine Bilirubin (Negative) Urine Urobilinogen (<2.0) mg/dL Ur Leukocyte Esterase (Negative) Urine RBC (0-5) /hpf Urine WBC (0-5) /hpf Urine Bacteria (None) /hpf Urine Mucus (None) /hpf 01/31/19 01/31/19 01/31/19 Range/Units 02:20 02:20 03:06 WBC (3.8-10.6) k/uL RBC (3.80-5.40) m/uL Hgb (11.4-16.0) gm/dL Hct (34.0-46.0) % MCV (80.0-100.0) fL MCH (25.0-35.0) pg MCHC (31.0-37.0) g/dL RDW (11.5-15.5) % Plt Count (150-450) k/uL Neutrophils % (Manual) % Band Neutrophils % % Lymphocytes % (Manual) % Monocytes % (Manual) % Neutrophils # (Manual) (1.3-7.7) k/uL Lymphocytes # (Manual) (1.0-4.8) k/uL Monocytes # (Manual) (0-1.0) k/uL Nucleated RBCs (0-0) /100 WBC Manual Slide Review PT 9.6 (9.0-12.0) sec INR 0.9 (<1.2) APTT 22.5 (22.0-30.0) sec Sample Site ABG pH (7.35-7.45) ABG pCO2 (35-45) mmHg ABG pO2 (83-108) mmHg ABG HCO3 (21-25) mmol/L ABG Total CO2 (19-24) mmol/L ABG O2 Saturation (94-97) % ABG Base Excess mmol/L Sonny Test FiO2 % Sodium (137-145) mmol/L Potassium (3.5-5.1) mmol/L Chloride (98-107) mmol/L Carbon Dioxide (22-30) mmol/L Anion Gap mmol/L BUN (7-17) mg/dL Creatinine (0.52-1.04) mg/dL Est GFR (CKD-EPI)AfAm (>60 ml/min/1.73 sqM) Est GFR (CKD-EPI)NonAf (>60 ml/min/1.73 sqM) Glucose (74-99) mg/dL Lactic Ac Sepsis Rflx Y Plasma Lactic Acid [place] (0.7-2.0) mmol/L Calcium (8.4-10.2) mg/dL Total Bilirubin (0.2-1.3) mg/dL AST (14-36) U/L ALT (9-52) U/L Alkaline Phosphatase (38-126) U/L Troponin I 0.068 H* (0.000-0.034) ng/mL Total Protein (6.3-8.2) g/dL Albumin (3.5-5.0) g/dL Amylase (30-110) U/L Lipase (23-300) U/L Urine Color Urine Appearance (Clear) Urine pH (5.0-8.0) Ur Specific [place] (1.001-1.035) Urine Protein (Negative) Urine Glucose (UA) (Negative) Urine Ketones (Negative) Urine Blood (Negative) Urine Nitrite (Negative) Urine Bilirubin (Negative) Urine Urobilinogen (<2.0) mg/dL Ur Leukocyte Esterase (Negative) Urine RBC (0-5) /hpf Urine WBC (0-5) /hpf Urine Bacteria (None) /hpf Urine Mucus (None) /hpf 01/31/19 01/31/19 01/31/19 Range/Units 04:45 05:14 05:52 WBC (3.8-10.6) k/uL RBC (3.80-5.40) m/uL Hgb (11.4-16.0) gm/dL Hct (34.0-46.0) % MCV (80.0-100.0) fL MCH (25.0-35.0) pg MCHC (31.0-37.0) g/dL RDW (11.5-15.5) % Plt Count (150-450) k/uL Neutrophils % (Manual) % Band Neutrophils % % Lymphocytes % (Manual) % Monocytes % (Manual) % Neutrophils # (Manual) (1.3-7.7) k/uL Lymphocytes # (Manual) (1.0-4.8) k/uL Monocytes # (Manual) (0-1.0) k/uL Nucleated RBCs (0-0) /100 WBC Manual Slide Review PT (9.0-12.0) sec INR (<1.2) APTT (22.0-30.0) sec Sample Site Left Radial ABG pH 7.13 L* (7.35-7.45) ABG pCO2 70 H (35-45) mmHg ABG pO2 101 (83-108) mmHg ABG HCO3 23 (21-25) mmol/L ABG Total CO2 26 H (19-24) mmol/L ABG O2 Saturation 95.4 (94-97) % ABG Base Excess -5.7 mmol/L Sonny Test Yes FiO2 40 % Sodium (137-145) mmol/L Potassium (3.5-5.1) mmol/L Chloride (98-107) mmol/L Carbon Dioxide (22-30) mmol/L Anion Gap mmol/L BUN (7-17) mg/dL Creatinine (0.52-1.04) mg/dL Est GFR (CKD-EPI)AfAm (>60 ml/min/1.73 sqM) Est GFR (CKD-EPI)NonAf (>60 ml/min/1.73 sqM) Glucose (74-99) mg/dL Lactic Ac Sepsis Rflx Plasma Lactic Acid [place] 2.6 H* (0.7-2.0) mmol/L Calcium (8.4-10.2) mg/dL Total Bilirubin (0.2-1.3) mg/dL AST (14-36) U/L ALT (9-52) U/L Alkaline Phosphatase (38-126) U/L Troponin I (0.000-0.034) ng/mL Total Protein (6.3-8.2) g/dL Albumin (3.5-5.0) g/dL Amylase (30-110) U/L Lipase (23-300) U/L Urine Color Yellow Urine Appearance Clear (Clear) Urine pH 5.5 (5.0-8.0) Ur Specific [place] >1.050 H (1.001-1.035) Urine Protein 1+ H (Negative) Urine Glucose (UA) Negative (Negative) Urine Ketones Trace H (Negative) Urine Blood Trace H (Negative) Urine Nitrite Negative (Negative) Urine Bilirubin Negative (Negative) Urine Urobilinogen <2.0 (<2.0) mg/dL Ur Leukocyte Esterase Negative (Negative) Urine RBC 1 (0-5) /hpf Urine WBC <1 (0-5) /hpf Urine Bacteria Rare H (None) /hpf Urine Mucus Rare H (None) /hpf 01/31/19 01/31/19 01/31/19 Range/Units 05:52 05:52 06:05 WBC (3.8-10.6) k/uL RBC (3.80-5.40) m/uL Hgb (11.4-16.0) gm/dL Hct (34.0-46.0) % MCV (80.0-100.0) fL MCH (25.0-35.0) pg MCHC (31.0-37.0) g/dL RDW (11.5-15.5) % Plt Count (150-450) k/uL Neutrophils % (Manual) % Band Neutrophils % % Lymphocytes % (Manual) % Monocytes % (Manual) % Neutrophils # (Manual) (1.3-7.7) k/uL Lymphocytes # (Manual) (1.0-4.8) k/uL Monocytes # (Manual) (0-1.0) k/uL Nucleated RBCs (0-0) /100 WBC Manual Slide Review PT (9.0-12.0) sec INR (<1.2) APTT (22.0-30.0) sec Sample Site Left Radial ABG pH 7.12 L* (7.35-7.45) ABG pCO2 61 H (35-45) mmHg ABG pO2 81 L (83-108) mmHg ABG HCO3 20 L (21-25) mmol/L ABG Total CO2 22 (19-24) mmol/L ABG O2 Saturation 91.7 L (94-97) % ABG Base Excess -9.4 mmol/L Sonny Test Yes FiO2 35 % Sodium 138 (137-145) mmol/L Potassium 3.6 (3.5-5.1) mmol/L Chloride 108 H (98-107) mmol/L Carbon Dioxide 23 (22-30) mmol/L Anion Gap 7 mmol/L BUN 9 (7-17) mg/dL Creatinine 0.47 L (0.52-1.04) mg/dL Est GFR (CKD-EPI)AfAm >90 (>60 ml/min/1.73 sqM) Est GFR (CKD-EPI)NonAf >90 (>60 ml/min/1.73 sqM) Glucose 182 H (74-99) mg/dL Lactic Ac Sepsis Rflx Plasma Lactic Acid [place] (0.7-2.0) mmol/L Calcium 7.2 L (8.4-10.2) mg/dL Total Bilirubin 0.6 (0.2-1.3) mg/dL AST 15 (14-36) U/L ALT 20 (9-52) U/L Alkaline Phosphatase 50 (38-126) U/L Troponin I 0.769 H* (0.000-0.034) ng/mL Total Protein 4.7 L (6.3-8.2) g/dL Albumin 2.6 L (3.5-5.0) g/dL Amylase (30-110) U/L Lipase (23-300) U/L Urine Color Urine Appearance (Clear) Urine pH (5.0-8.0) Ur Specific [place] (1.001-1.035) Urine Protein (Negative) Urine Glucose (UA) (Negative) Urine Ketones (Negative) Urine Blood (Negative) Urine Nitrite (Negative) Urine Bilirubin (Negative) Urine Urobilinogen (<2.0) mg/dL Ur Leukocyte Esterase (Negative) Urine RBC (0-5) /hpf Urine WBC (0-5) /hpf Urine Bacteria (None) /hpf Urine Mucus (None) /hpf Critical Care Time Critical Care Time: Yes Total Critical Care Time: 60 Disposition Clinical Impression: Respiratory failure, Lactic acidosis, Left-sided weakness, Abdominal pain, Elevated troponin, Allergic reaction caused by a drug Disposition: ADMITTED IP TO THIS [facility] Condition: Critical
[2019-01-31] MEDS ORDERED: SODIUM CHLORIDE 0.9% 1,000 ML IV SCH ×3 (03:45→09:15)
[2019-01-31 03:52] LABS: Band Neutrophils % 9 %; Lymphocytes # (M) 2.03 k/uL (1.0-4.8); Monocytes # (M) 0.47 k/uL (0-1.0); Neutrophils % (M) 75 %; Nucleated Red Blood Cells 0 /100 WBC (0-0); Total Cells Counted 100
[2019-01-31] MEDS ORDERED: FAMOTIDINE 20 MG/2 ML VIAL IV STA (04:13)
[2019-01-31] MEDS ORDERED: diphenhydrAMINE 50 MG/ML 1 ML VIAL IVP STA (04:13)
[2019-01-31] MEDS ORDERED: methylPREDNISolone SOD SUCCI 125 MG/2 ML VIAL IV STA (04:13)
[2019-01-31] MEDS ORDERED: ALBUTEROL NEBULIZED 2.5 MG/3 ML INHALATION STA (04:23)
[2019-01-31] MEDS ORDERED: NALOXONE 0.4 MG/ML 1 ML VIAL IV STA (04:33)
[2019-01-31] MEDS ORDERED: ETOMIDATE 2 MG/ML 10 ML VIAL IVP STA ×2 (04:33→05:12)
[2019-01-31] MEDS: METOPROLOL TARTRATE 5 MG/5 ML VIAL IVP SCH ×4 (04:46→12:21)
[2019-01-31 04:52] LABS: ABG Base Excess -5.7 mmol/L; ABG HCO3 23 mmol/L (21-25); ABG Oxygen Saturation 95.4 % (94-97); ABG PCO2 70 mmHg (35-45); ABG PO2 101 mmHg (83-108); ABG TCO2 26 mmol/L (19-24)
--- NOTE | 2019-01-31 04:57 | CT ---
EXAM: CT Angiography Chest With Intravenous Contrast CLINICAL HISTORY: Pain, R/O PE, SOB, DLP: 294.90 TECHNIQUE: Axial computed tomographic angiography images of the chest with 70 mL of Isovue-370 intravenous contrast using pulmonary embolism protocol. DLP is 295 mGy-cm. This CT exam was performed using one or more of the following dose reduction techniques: automated exposure control, adjustment of the mA and/or kV according to patient size, and/or use of iterative reconstruction technique. MIP reconstructed images were created and reviewed. Coronal and sagittal reformatted images were created and reviewed. COMPARISON: No relevant prior studies available. FINDINGS: Pulmonary arteries: Unremarkable. No pulmonary embolism. Aorta: Large amount of atherosclerotic calcifications. Lungs: Moderate to severe centrilobular pulmonary emphysema. Septal thickening throughout both lungs may suggest minimal pulmonary edema. No mass. Pleural space: Unremarkable. No significant effusion. No pneumothorax. Heart: Unremarkable. No cardiomegaly. No significant pericardial effusion. No evidence of RV dysfunction. Bones/joints: Osteopenia. Moderate degenerative changes. Mild mid lumbar scoliosis convexed to the left. Soft tissues: Unremarkable. Lymph nodes: Unremarkable. No enlarged lymph nodes. Liver: 12 mm hypodensity in the left lobe of the liver, likely cyst or hemangioma. Kidneys and ureters: Small nonobstructing bilateral renal stones, measuring up to 6 mm, versus vascular calcifications. IMPRESSION: 1. No pulmonary embolism. No thoracic aortic aneurysm or dissection. 2. Moderate to severe centrilobular pulmonary emphysema. 3. Septal thickening throughout both lungs may suggest minimal pulmonary edema.
[2019-01-31] MEDS ORDERED: PROPOFOL 1,000 MG in EMPTY BAG 1 BAG IV ONE (05:08)
--- NOTE | 2019-01-31 05:14 | CT ---
EXAM: CT Head Without Intravenous Contrast CLINICAL HISTORY: After Chest study, patient has left leg and left arm paralysis, confused mental state TECHNIQUE: Axial computed tomography images of the head/brain without intravenous contrast. DLP is 1149 mGy-cm. This CT exam was performed using one or more of the following dose reduction techniques: automated exposure control, adjustment of the mA and/or kV according to patient size, and/or use of iterative reconstruction technique. Coronal and sagittal reconstructions are performed. COMPARISON: No relevant prior studies available. FINDINGS: Residual IV contrast from CT chest is visible Brain: Mild to moderate chronic small vessel ischemic changes. 11 mm hypodensity of left cerebellum, likely represents an old lacunar infarct versus neuroglial cyst. No hemorrhage. No abnormal enhancement. Ventricles: Unremarkable. No ventriculomegaly. Bones/joints: Unremarkable. No acute fracture. Soft tissues: Unremarkable. Sinuses: Small polyp versus retention cyst of right maxillary sinus. Mastoid air cells: Unremarkable as visualized. No mastoid effusion. Orbits: Bilateral cataract surgeries. IMPRESSION: No acute intracranial infarct. If acute intracranial infarction remains a concern, MRI may help to further evaluate if patient candidate.
[2019-01-31] MEDS ORDERED: SODIUM CHLORIDE 0.9% 1,000 ML IV ONE ×2 (05:16→05:39)
[2019-01-31] MEDS ORDERED: MIDAZOLAM 1 MG/ML 5 ML VIAL IV STA ×3 (05:16→06:13)
--- NOTE | 2019-01-31 05:30 | XR ---
EXAM: XR Chest, 1 View CLINICAL HISTORY: intubation TECHNIQUE: Frontal view of the chest. COMPARISON: 01/21/2017, same day from 300 hours FINDINGS: Lungs: Moderate diffuse interstitial and airspace opacities throughout both lungs, slightly increased. Pleural space: Unremarkable. No pneumothorax. Heart: Unremarkable. No cardiomegaly. Mediastinum: Unremarkable. Bones/joints: Osteopenia. Soft tissues: Left axillary clips. Vasculature: Calcified aorta. Tubes, lines and devices: Tip of enteric tube is just above the level of GE junction. Tip of endotracheal tube is about 6.7 cm above the petros. IMPRESSION: 1. Tip of enteric tube is just above the level of GE junction. Recommend advancement by at least 12 cm. 2. moderate pulmonary edema, slightly worse
[2019-01-31 05:35] LABS: ABG PH 7.13 (7.35-7.45)
[2019-01-31 05:39] LABS: Appearance,Urine Clear (Clear); Bacteria,Urine Rare /hpf; Bilirubin,Urine Negative (Negative); Blood,Urine Trace (Negative); Color,Urine Yellow; Glucose,Urine (UA) Negative (Negative); Ketones,Urine Trace (Negative); Leukocyte Esterase,Urine Negative (Negative); Mucus,Urine Rare /hpf; Nitrite,Urine Negative (Negative); PH, Urine 5.5 (5.0-8.0); Protein,Urine 1+ (Negative); RBC,Urine 1 /hpf (0-5); Urobilinogen,Urine <2.0 mg/dL (<2.0); WBC,Urine <1 /hpf (0-5)
[2019-01-31] MEDS ORDERED: NOREPINEPHRINE 4 MG in SODIUM CHLORIDE 0.9% 250 ML IV ONE (05:45)
--- NOTE | 2019-01-31 05:45 | CT ---
EXAM: CT Angiography Head With Intravenous Contrast CLINICAL HISTORY: After Chest study, patient has left leg and left arm paralysis, confused mental state TECHNIQUE: Axial computed tomographic angiography images of the head with intravenous contrast using CT angiography protocol. DLP is 372.4 mGy-cm. This CT exam was performed using one or more of the following dose reduction techniques: automated exposure control, adjustment of the mA and/or kV according to patient size, and/or use of iterative reconstruction technique. MIP reconstructed images were created and reviewed. Coronal and sagittal reformatted images were created and reviewed. COMPARISON: No relevant prior studies available. FINDINGS: Right internal carotid artery: No acute findings. Intracranial segment is patent with no significant stenosis. No aneurysm. Right anterior cerebral artery: Unremarkable. No occlusion or significant stenosis. No aneurysm. Right middle cerebral artery: Unremarkable. No occlusion or significant stenosis. No aneurysm. Right posterior cerebral artery: Unremarkable. No occlusion or significant stenosis. No aneurysm. Right vertebral artery: Unremarkable as visualized. Left internal carotid artery: No acute findings. Intracranial segment is patent with no significant stenosis. No aneurysm. Left anterior cerebral artery: Unremarkable. No occlusion or significant stenosis. No aneurysm. Left middle cerebral artery: Unremarkable. No occlusion or significant stenosis. No aneurysm. Left posterior cerebral artery: Unremarkable. No occlusion or significant stenosis. No aneurysm. Left vertebral artery: Unremarkable as visualized. Basilar artery: Unremarkable. No occlusion or significant stenosis. No aneurysm. IMPRESSION: No focal intracranial vascular abnormality EXAM: CT Angiography Neck With Intravenous Contrast CLINICAL HISTORY: After Chest study, patient has left leg and left arm paralysis, confused mental state TECHNIQUE: Axial computed tomographic angiography images of the neck with intravenous contrast using CT angiography protocol. DLP is 372.4 mGy-cm. This CT exam was performed using one or more of the following dose reduction techniques: automated exposure control, adjustment of the mA and/or kV according to patient size, and/or use of iterative reconstruction technique. MIP reconstructed images were created and reviewed. Coronal and sagittal reformatted images were created and reviewed. COMPARISON: No relevant prior studies available. FINDINGS: VASCULATURE: Large amount of atherosclerotic calcifications, concentrated in carotid bulb and proximal internal carotid arteries bilaterally. Right common carotid artery: Unremarkable. No significant stenosis. No dissection or occlusion. Right internal carotid artery: Moderate to severe (60-80%) stenosis of 9 mm segment of proximal internal carotid artery which is heavily calcified, best seen on series 501 image 60 to 61. No dissection or occlusion. Right external carotid artery: Unremarkable. No occlusion. Right vertebral artery: Unremarkable. No significant stenosis. No dissection or occlusion. Left common carotid artery: Unremarkable. No significant stenosis. No dissection or occlusion. Left internal carotid artery: Mild to moderate (50-60%) stenosis of proximal internal carotid artery about 1 cm near the takeoff best seen on series 501 image 62 and series 5, with 3 image 10. Left external carotid artery: Unremarkable. No occlusion. Left vertebral artery: Unremarkable. No significant stenosis. No dissection or occlusion. NECK: Bones/joints: Moderate degenerative disc disease.. Soft tissues: Unremarkable as visualized. No mass. Pleural space: small bilateral pleural effusions. CAROTID STENOSIS REFERENCE USING NASCET CRITERIA: % ICA stenosis = (1 - narrowest ICA diameter/diameter of distal cervical ICA) x 100. Mild - <50% stenosis. Moderate - 50-69% stenosis. Severe - 70-94% stenosis. Near occlusion - 95-99% stenosis. Occluded - 100% stenosis. IMPRESSION: Moderate to severe (60-80%) stenosis of 9 mm segment of proximal right internal carotid artery Mild to moderate (50-60%) stenosis of proximal right internal carotid artery at about 1 cm from the takeoff. Conventional angiogram may help to further evaluate if clinically indicated small bilateral pleural effusions.
[2019-01-31] MEDS ORDERED: levETIRAcetam IV 1,000 MG in SALINE 1 100ML.BAG IVPB SCH (06:00)
[2019-01-31] MEDS ORDERED: IPRATROPIUM-ALBUTEROL 3 ML NEB INHALATION PRN (06:07)
[2019-01-31] MEDS ORDERED: NALOXONE 0.4 MG/ML 1 ML VIAL IV PRN (06:07)
[2019-01-31] MEDS ORDERED: ARTIFICIAL TEARS-HYPROMELLOSE DROPS 15 ML BTL BOTH EYES PRN (06:07)
[2019-01-31 06:12] LABS: ABG Base Excess -9.4 mmol/L; ABG HCO3 20 mmol/L (21-25); ABG Oxygen Saturation 91.7 % (94-97); ABG PCO2 61 mmHg (35-45); ABG PO2 81 mmHg (83-108); ABG TCO2 22 mmol/L (19-24)
[2019-01-31 06:22] LABS: ALT 20 U/L (9-52); AST 15 U/L (14-36); Albumin 2.6 g/dL (3.5-5.0); Alkaline Phosphatase 50 U/L (38-126); Anion Gap 7 mmol/L; Blood Urea Nitrogen 9 mg/dL (7-17); Calcium 7.2 mg/dL (8.4-10.2); Carbon Dioxide 23 mmol/L (22-30); Chloride 108 mmol/L (98-107); Glucose 182 mg/dL (74-99); Potassium 3.6 mmol/L (3.5-5.1); Sodium 138 mmol/L (137-145); Total Bilirubin 0.6 mg/dL (0.2-1.3); Total Protein 4.7 g/dL (6.3-8.2)
[2019-01-31 06:31] LABS: Specific Gravity,Urine >1.050 (1.001-1.035)
[2019-01-31 06:42] LABS: ABG PH 7.12 (7.35-7.45)
[2019-01-31 07:14] LABS: Glucose,Whole Blood 148 mg/dL (75-99)
[2019-01-31 08:47] LABS: ABG Base Excess -8.2 mmol/L; ABG HCO3 19 mmol/L (21-25); ABG Oxygen Saturation 94.2 % (94-97); ABG PCO2 46 mmHg (35-45); ABG PH 7.24 (7.35-7.45); ABG PO2 82 mmHg (83-108); ABG TCO2 21 mmol/L (19-24)
[2019-01-31] MEDS ORDERED: PANTOPRAZOLE 40 MG/10 ML VIAL IV SCH (09:00)
[2019-01-31] MEDS ORDERED: PIPERACILLIN-TAZOBACTAM 3.375 GM in SODIUM CHLORIDE 0.9% 100 ML IVPB SCH (09:00)
[2019-01-31 09:06] VITALS: TEMP 98.2
--- NOTE | 2019-01-31 10:34 | P.CNPUL ---
History of Present Illness Consult date: 01/31/19 Reason for consult: other (Acute hypercapnic respiratory failure) Chief complaint: Abdominal pain History of present illness: This is a 73-year-old female with history of COPD, breast cancer, hypertension, seen in the ER last , 3 days ago complaining of abdominal pain. She had a full workup in the ER, including a CT of the abdomen and pelvis, multiple labs were done, and the patient was in the hospital basically overnight, she was discharged the following day on oral narcotics for pain control. However the workup for abdominal pain was basically nondiagnostic. Patient was doing fairly well until last night, she developed worsening abdominal pain mostly in the epigastric region, and she took her narcotic pain medication, however her pain became much worse. Patient was also complaining of some shortness of breath. EMS arrived and found the patient tachypneic, tachycardic, but not wheezing. She was given morphine 4 mg IV push in route to the hospital, and upon arrival to the ER patient was noted to have more shortness of breath. She was also complaining of abdominal pain. More morphine was given. However the patient developed worsening shortness of breath and tachycardia. While in the ER, patient developed wheezing, more shortness of breath, and hypoxia. She was also complaining of left arm tingling. Patient was given Solu-Medrol Pepcid and Benadryl by the ER physician who felt that the patient may have had an ALLERGIC reaction to narcotics. Patient was placed on BiPAP, given albuterol, however she continued to have more symptoms and now she developed what looked like flaccid paralysis of the left upper exudative. Code stroke was activated, CT of the brain was nondiagnostic, CT angiogram showed mostly moderate to severe carotid artery disease right and left. CT angiogram of the chest showed moderate to severe centrilobular pulmonary emphysema no evidence of pulmonary embolism. There was also evidence of minimal pulmonary edema. KUB showed no acute findings. ABG post intubation showed a pO2 of 81 pCO2 of 61 pH of 7.12. Earlier her pCO2 was 70 before intubation. Troponins were noted to be elevated and these were normal on the last evaluation. EKG showed T wave changes which were not present previously, there is clearly evidence of T-wave inversion noted in anteroseptal leads. I saw this patient this morning, she was already on mechanical ventilation in the ICU. After reviewing her chart and examining the patient, recommended a neurological consultation, cardiac consultation, general surgery consultation, I have noted that her ABG is mostly reflecting a picture of hypercapnic respiratory failure most likely secondary to narcotics, and underlying COPD. Her ventilator settings were adjusted, presently she is on assist control rate of 26, volume is 400 FiO2 is 35% and PEEP is 5. Basic metabolic profile was noted to be relatively normal bicarb was 23. Renal profile is normal. Electrolytes are normal. Repeat ABG showed a pO2 of 82 pCO2 of 46 pH of 7.24, hence her assist control rate was increased from 24-26. The rest of the ventilator settings remained the same. Patient was also noted to be on propofol which would be placed on hold for neurological assessment by neurology. And she was on norepinephrine at 20 mcg/m. Propofol at 50 mcg/kg/h shortly after assessing the patient, discussed her condition with her family and with the ca rdiologist/Dr. Castellano. He seems to be quite concerned about the EKG changes, and he is considering cardiac catheterization. Review of Systems ROS unobtainable: due to endotracheal tube (Could not be assessed, however according the family patient had mostly abdominal pain no other symptoms prior to admission to the hospital.) Past Medical History Past Medical History: Cancer, Hypertension Additional Past Medical History / Comment(s): hx breast cancer History of Any Multi-Drug Resistant Organisms: None Reported Past Surgical History: Breast Surgery Additional Past Surgical History / Comment(s): left breast lumpectomy, aj cataracts Past Anesthesia/Blood Transfusion Reactions: No Reported Reaction Past Psychological History: No Psychological Hx Reported Smoking Status: Current every day smoker Past Alcohol Use History: None Reported Past Drug Use History: None Reported - Past Family History Father Family Medical History: Cancer Medications and Allergies Home Medications Medication Instructions Recorded Confirmed Type HYDROcodone/APAP 5-325MG [[place] 1 tab PO Q6HR PRN #12 tab 01/27/19 01/31/19 Rx 5-325] Lisinopril [Zestril] 20 mg PO DAILY 01/27/19 01/31/19 History Omeprazole [PriLOSEC] 20 mg PO AC-BID #60 cap 01/27/19 01/31/19 Rx Allergies Allergy/AdvReac Type Severity Reaction Status Date / Time No Known Allergies Allergy Verified 01/31/19 08:43 Physical Exam Vitals: Vital Signs Temp Pulse Resp BP Pulse Ox 01/31/19 10:00 92 27 H 94/68 94 L 01/31/19 09:45 92 26 H 85/63 96 01/31/19 09:30 92 26 H 95/69 94 L 01/31/19 09:15 104 H 20 96/69 89 L 01/31/19 09:00 94 23 96/67 94 L 01/31/19 08:50 92 26 H 96/67 95 01/31/19 08:40 93 22 96/69 94 L 01/31/19 08:30 93 25 H 91/72 01/31/19 08:20 93 24 91/72 95 01/31/19 08:10 93 22 86/64 90 L 01/31/19 08:00 98.2 F 87 22 88/68 91 L 01/31/19 06:45 97.4 F L 92 20 83/62 93 L 01/31/19 06:33 97.4 F L 91 24 77/61 95 01/31/19 06:24 82 27 H 88/75 91 L 01/31/19 06:01 97.3 F L 94 23 85/42 94 L 01/31/19 05:50 97.3 F L 90 21 65/46 93 L 01/31/19 05:30 91 20 69/53 98 01/31/19 05:20 96 19 74/53 100 01/31/19 05:10 100 20 121/85 100 01/31/19 05:00 109 H 26 H 88/72 80 L 01/31/19 04:58 97.3 F L 106 H 24 82/54 95 01/31/19 04:55 24 01/31/19 04:50 96 24 87/69 96 01/31/19 04:43 144 H 24 136/95 95 01/31/19 04:28 97.7 F 142 H 18 130/110 95 01/31/19 04:22 147 H 26 H 95 01/31/19 04:10 144 H 30 H 134/89 94 L 01/31/19 03:39 97.2 F L 115 H 24 138/95 91 L 01/31/19 02:43 130 H 24 134/88 96 01/31/19 02:36 120 H 18 01/31/19 02:27 118 H 18 01/31/19 02:16 97.0 F L 116 H 26 H 129/80 94 L Intake and Output 01/30/19 01/31/19 01/31/19 22:59 06:59 14:59 Intake Total 6.244 350 Output Total 400 180 Balance -393.756 170 Intake: IV 125 Sodium Chloride 0.9% 1, 125 000 ml @ 125 mls/hr IV . Q8H [facility] Rx#:[id number] Intake, IV Titration 6.244 225 Amount Norepinephrine 4 mg In 5.654 Sodium Chloride 0.9% 250 ml @ 0.05 MCG/KG/MIN 11. 233 mls/hr IV .[id number] [facility] Rx#:[id number] Propofol 1,000 mg In 0.59 Empty Bag 1 bag @ Titrate IV .Q0M [facility] Rx#: [id number] Sodium Chloride 0.9% 1, 225 000 ml @ 75 mls/hr IV . [id number] [facility] Rx#:[id number] Output: Urine 400 180 Uretheral (Perez) 400 Other: Weight 58.967 kg ABP, PAP, CO, CI - Last 8 Hours Arterial Blood Pressure 107/65 Arterial Blood Pressure 106/65 Arterial Blood Pressure 94/59 Arterial Blood Pressure 109/63 Arterial Blood Pressure 108/67 Arterial Blood Pressure 102/64 Physical Exam: Revealed a 73-year-old female in no distress, on mechanical ventilation Head: Atraumatic, normocephalic. HEENT:[Neck is supple.] [No neck masses.] [No thyromegaly.] [No JVD.]. Pupils are pinpoint. No icterus, dry mucous membranes. Endotracheal tube and orogastric tube are intact. Chest: [Diminished breath sounds at the bases posteriorly, no crackles, no rhonchi, no wheezes, symmetrical chest expansion was noted.] Cardiac Exam: [Normal S1 and S2, no S3 gallop, no murmur.] Abdomen: [Soft, nontender, no megaly, no rebound, no guarding, normal bowel sounds.] Extremities: [No clubbing, no edema, no cyanosis.] Neurological Exam: Could not be assessed, patient is on propofol, will be placed on hold for neurological assessment by neurology. Psychiatric: Could not be assessed. Lymphatics: No lymphadenopathy. Skin: No rashes. Results - Laboratory Findings CBC and BMP: 01/31/19 02:20 01/31/19 05:52 ABG ABG pH 7.24 (7.35-7.45) L 01/31/19 08:44 ABG pCO2 46 mmHg (35-45) H 01/31/19 08:44 ABG pO2 82 mmHg (83-108) L 01/31/19 08:44 ABG O2 Saturation 94.2 % (94-97) 01/31/19 08:44 PT/INR, D-dimer PT 9.6 sec (9.0-12.0) 01/31/19 02:20 INR 0.9 (<1.2) 01/31/19 02:20 Abnormal lab findings: Abnormal Labs 01/31/19 01/31/19 01/31/19 02:20 02:20 02:20 WBC 15.6 H MCV 101.4 H Neutrophils # (Manual) 13.10 H ABG pH ABG pCO2 ABG pO2 ABG HCO3 ABG Total CO2 ABG O2 Saturation Sodium 136 L Chloride Creatinine 0.43 L Glucose 127 H POC Glucose (mg/dL) Plasma Lactic Acid [place] 2.2 H* Calcium Troponin I Total Protein Albumin Amylase <30 L Ur Specific [place] Urine Protein Urine Ketones Urine Blood Urine Bacteria Urine Mucus 01/31/19 01/31/19 01/31/19 02:20 04:45 05:14 WBC MCV Neutrophils # (Manual) ABG pH 7.13 L* ABG pCO2 70 H ABG pO2 ABG HCO3 ABG Total CO2 26 H ABG O2 Saturation Sodium Chloride Creatinine Glucose POC Glucose (mg/dL) Plasma Lactic Acid [place] Calcium Troponin I 0.068 H* Total Protein Albumin Amylase Ur Specific [place] >1.050 H Urine Protein 1+ H Urine Ketones Trace H Urine Blood Trace H Urine Bacteria Rare H Urine Mucus Rare H 01/31/19 01/31/19 01/31/19 05:52 05:52 05:52 WBC MCV Neutrophils # (Manual) ABG pH ABG pCO2 ABG pO2 ABG HCO3 ABG Total CO2 ABG O2 Saturation Sodium Chloride 108 H Creatinine 0.47 L Glucose 182 H POC Glucose (mg/dL) Plasma Lactic Acid [place] 2.6 H* Calcium 7.2 L Troponin I 0.769 H* Total Protein 4.7 L Albumin 2.6 L Amylase Ur Specific [place] Urine Protein Urine Ketones Urine Blood Urine Bacteria Urine Mucus 01/31/19 01/31/19 01/31/19 06:05 07:03 08:44 WBC MCV Neutrophils # (Manual) ABG pH 7.12 L* 7.24 L ABG pCO2 61 H 46 H ABG pO2 81 L 82 L ABG HCO3 20 L 19 L ABG Total CO2 ABG O2 Saturation 91.7 L Sodium Chloride Creatinine Glucose POC Glucose (mg/dL) 148 H Plasma Lactic Acid [place] Calcium Troponin I Total Protein Albumin Amylase Ur Specific [place] Urine Protein Urine Ketones Urine Blood Urine Bacteria Urine Mucus - Diagnostic Findings Chest x-ray: image reviewed CT scan - chest: image reviewed (As noted in HPI.) Assessment and Plan Assessment: Impression: 1 acute hypercapnic respiratory failure secondary to narcotics and underlying COPD. 2 acute abdominal pain, exact etiology is not clear, but felt to be cardiac unless proven otherwise. 3 possible right hemispheric CVA with left-sided weakness/flaccid paralysis noted in the ER. CT of the brain was negative. Further neurologic evaluation and workup are pending. 4 suspected non-ST elevation myocardial infarction 5 severe underlying COPD, suspect acute exacerbation with hypercapnic respiratory failure. Acute. 6 history of hypertension 7 remote history of left breast cancer and lumpectomy. 8 tobacco dependence syndrome. Recommendation: 1 continue mechanical ventilation, ventilator settings were adjusted accordingly. 2 continue bronchodilators for underlying COPD/DuoNeb updrafts. 3 neurological evaluation by neurology 4 surgical evaluation by general surgery, surgery was consulted. Although the abdominal findings are relatively benign and most recent CT of the abdomen was negative. Patient will be given empirically antibiotics in the form of Zosyn. 5 hypotension requiring fluid boluses and norepinephrine, strongly doubt sepsis, possibility of underlying cardiac event is not entirely ruled out. Patient was seen by cardiology, and echocardiogram is pending, cardiac catheterization is being considered. 6 possible right hemispheric CVA with left upper extremity weakness, negative CT of the brain, however further neurological workup is pending. 7 empiric antibiotics for acute presentation of abdominal pain, patient was placed on Zosyn empirically. 8 GI and DVT prophylaxis. Discussed her condition with all her family members at bedside including the , made aware that the patient is critically ill, and made aware of the different consultants where consulted regarding her condition, further workup is pending, and they will be updated on a daily basis on her condition. Prognosis is definitely guarded at this point. Patient is critically ill. Time with Patient: Greater than 30
[2019-01-31] MEDS ORDERED: NOREPINEPHRINE 32 MG in SODIUM CHLORIDE 0.9% 218 ML IV SCH (11:00)
--- NOTE | 2019-01-31 11:10 | P.CNNES ---
History of Present Illness Consult date: 01/31/19 Reason for Consult: Left-sided paralysis Chief complaint: CVA History of Present Illness: Patient is a 73-year-old female, who has history of COPD, hypertension, works recently seen in the ER 3 days ago complaining of abdominal pain. Patient underwent CT of abdomen and pelvis and labs which were all nonrevealing. Daria snyder was discharged on oral narcotics for pain control. Patient was doing fairly well until last night, when she developed worsening abdominal pain mostly in the epigastric region. She took her narcotic pain medication, but the pain became worse. The pain was involving all around her back and she couldn't breathe. She laid down and asked EMS to be called. Patient was brought to the hospital. Patient was given 4 mg of morphine in route to the hospital. In the ER she has continued pain in the abdomen for which she received another 4 mg of morphine. Patient in the ER started complaining of tingling in the left arm, which later became flaccid and then the left arm also became weak. Stroke code was initiated at 4:34 AM this morning. CTA of head and neck was performed, which revealed moderate to severe (60-80%) stenosis of 9 mm segment of the proximal right ICA. Mild to moderate (50-60%) stenosis of the proximal right ICA at about 1 cm from takeoff. Conventional angiogram may help to further evaluate if clinically indicated. Small bilateral pleural effusions. Neuro intervention was consulted, who felt, due to patient's complicated history, was not a candidate for thrombolysis with TPA. Patient was recommended to be on Keppra 500 mg twice a day for seizure prophylaxis. Patient developed respiratory distress in the emergency room, for which she was intubated and placed on mechanical ventilation. Patient at present is sedated. She has received Versed 5 mg at 7 AM. He was also on propofol 25 g, which was held for examination now. After 15 minutes of holding on the propofol, I saw patient moving right arm towards her mouth spontaneously, but not on commands. Patient had a computed tomography scan of head performed at 4 AM, which revealed no acute process. All blood vessels were hyperdense, likely from receiving contrast earlier. EKG showed sinus tachycardia with premature atrial complexes. Anterior septal infarct. Age undetermined. Blood tests were reviewed. Troponin is 0.76. Review of Systems Cannot assess as patient is intubated. ROS unobtainable: due to endotracheal tube, due to mental status Past Medical History Past Medical History: Cancer, Hypertension Additional Past Medical History / Comment(s): hx breast cancer History of Any Multi-Drug Resistant Organisms: None Reported Past Surgical History: Breast Surgery Additional Past Surgical History / Comment(s): left breast lumpectomy, aj cataracts Past Anesthesia/Blood Transfusion Reactions: No Reported Reaction Past Psychological History: No Psychological Hx Reported Smoking Status: Current every day smoker Past Alcohol Use History: None Reported Past Drug Use History: None Reported - Past Family History Father Family Medical History: Cancer Medications and Allergies Home Medications Medication Instructions Recorded Confirmed Type HYDROcodone/APAP 5-325MG [[place] 1 tab PO Q6HR PRN #12 tab 01/27/19 01/31/19 Rx 5-325] Lisinopril [Zestril] 20 mg PO DAILY 01/27/19 01/31/19 History Omeprazole [PriLOSEC] 20 mg PO AC-BID #60 cap 01/27/19 01/31/19 Rx Allergies Allergy/AdvReac Type Severity Reaction Status Date / Time No Known Allergies Allergy Verified 01/31/19 08:43 Physical Examination - Vital Signs Vital Signs: Vital Signs Temp Pulse Resp BP Pulse Ox 01/31/19 10:00 92 27 H 94/68 94 L 01/31/19 09:45 92 26 H 85/63 96 01/31/19 09:30 92 26 H 95/69 94 L 01/31/19 09:15 104 H 20 96/69 89 L 01/31/19 09:00 94 23 96/67 94 L 01/31/19 08:50 92 26 H 96/67 95 01/31/19 08:40 93 22 96/69 94 L 01/31/19 08:30 93 25 H 91/72 01/31/19 08:20 93 24 91/72 95 01/31/19 08:10 93 22 86/64 90 L 01/31/19 08:00 98.2 F 87 22 88/68 91 L 01/31/19 06:45 97.4 F L 92 20 83/62 93 L 01/31/19 06:33 97.4 F L 91 24 77/61 95 01/31/19 06:24 82 27 H 88/75 91 L 01/31/19 06:01 97.3 F L 94 23 85/42 94 L 01/31/19 05:50 97.3 F L 90 21 65/46 93 L 01/31/19 05:30 91 20 69/53 98 01/31/19 05:20 96 19 74/53 100 01/31/19 05:10 100 20 121/85 100 01/31/19 05:00 109 H 26 H 88/72 80 L 01/31/19 04:58 97.3 F L 106 H 24 82/54 95 01/31/19 04:55 24 01/31/19 04:50 96 24 87/69 96 01/31/19 04:43 144 H 24 136/95 95 01/31/19 04:28 97.7 F 142 H 18 130/110 95 01/31/19 04:22 147 H 26 H 95 01/31/19 04:10 144 H 30 H 134/89 94 L 01/31/19 03:39 97.2 F L 115 H 24 138/95 91 L 01/31/19 02:43 130 H 24 134/88 96 01/31/19 02:36 120 H 18 01/31/19 02:27 118 H 18 01/31/19 02:16 97.0 F L 116 H 26 H 129/80 94 L Intake and Output 01/30/19 01/31/19 01/31/19 22:59 06:59 14:59 Intake Total 6.244 350 Output Total 400 180 Balance -393.756 170 Intake: IV 125 Sodium Chloride 0.9% 1, 125 000 ml @ 125 mls/hr IV . Q8H [facility] Rx#:[id number] Intake, IV Titration 6.244 225 Amount Norepinephrine 4 mg In 5.654 Sodium Chloride 0.9% 250 ml @ 0.05 MCG/KG/MIN 11. 233 mls/hr IV .[id number] ONE Rx#:[id number] Propofol 1,000 mg In 0.59 Empty Bag 1 bag @ Titrate IV .Q0M ONE Rx#: [id number] Sodium Chloride 0.9% 1, 225 000 ml @ 75 mls/hr IV . [id number] [facility] Rx#:[id number] Output: Urine 400 180 Uretheral (Perez) 400 Other: Weight 58.967 kg ABP, PAP, CO, CI - Last 8 Hours Arterial Blood Pressure 107/65 Arterial Blood Pressure 106/65 Arterial Blood Pressure 94/59 Arterial Blood Pressure 109/63 Arterial Blood Pressure 108/67 Arterial Blood Pressure 102/64 On examination patient is an elderly female, who is almost comatose, not responding to any noxious stimulus. Propofol has been held about 15 minutes ago. Patient was seen moving her right arm up to her mouth to the ETT once. Her left arm appears more flaccid. Her pupils are small, about 3 mm, reacting to 2 mm bilaterally. Gaze is in the midline. Her head did slightly deviated to the right. Tone is more flaccid appearing on the left whereas normal on the right. Reflexes are 1 in the upper limbs, 1+ in the lower limbs and plantars are probably downgoing bilaterally. No clonus. No obvious seizure activity noted. Results - Laboratory Findings CBC and BMP: 01/31/19 02:20 01/31/19 05:52 Abnormal Lab Findings: Abnormal Labs 01/31/19 01/31/19 01/31/19 02:20 02:20 02:20 WBC 15.6 H MCV 101.4 H Neutrophils # (Manual) 13.10 H ABG pH ABG pCO2 ABG pO2 ABG HCO3 ABG Total CO2 ABG O2 Saturation Sodium 136 L Chloride Creatinine 0.43 L Glucose 127 H POC Glucose (mg/dL) Plasma Lactic Acid Kayode 2.2 H* Calcium Troponin I Total Protein Albumin Amylase <30 L Ur Specific [place] Urine Protein Urine Ketones Urine Blood Urine Bacteria Urine Mucus 01/31/19 01/31/19 01/31/19 02:20 04:45 05:14 WBC MCV Neutrophils # (Manual) ABG pH 7.13 L* ABG pCO2 70 H ABG pO2 ABG HCO3 ABG Total CO2 26 H ABG O2 Saturation Sodium Chloride Creatinine Glucose POC Glucose (mg/dL) Plasma Lactic Acid Kayode Calcium Troponin I 0.068 H* Total Protein Albumin Amylase Ur Specific [place] >1.050 H Urine Protein 1+ H Urine Ketones Trace H Urine Blood Trace H Urine Bacteria Rare H Urine Mucus Rare H 01/31/19 01/31/19 01/31/19 05:52 05:52 05:52 WBC MCV Neutrophils # (Manual) ABG pH ABG pCO2 ABG pO2 ABG HCO3 ABG Total CO2 ABG O2 Saturation Sodium Chloride 108 H Creatinine 0.47 L Glucose 182 H POC Glucose (mg/dL) Plasma Lactic Acid Kayode 2.6 H* Calcium 7.2 L Troponin I 0.769 H* Total Protein 4.7 L Albumin 2.6 L Amylase Ur Specific [place] Urine Protein Urine Ketones Urine Blood Urine Bacteria Urine Mucus 01/31/19 01/31/19 01/31/19 06:05 07:03 08:44 WBC MCV Neutrophils # (Manual) ABG pH 7.12 L* 7.24 L ABG pCO2 61 H 46 H ABG pO2 81 L 82 L ABG HCO3 20 L 19 L ABG Total CO2 ABG O2 Saturation 91.7 L Sodium Chloride Creatinine Glucose POC Glucose (mg/dL) 148 H Plasma Lactic Acid Kayode Calcium Troponin I Total Protein Albumin Amylase Ur Specific [place] Urine Protein Urine Ketones Urine Blood Urine Bacteria Urine Mucus - Diagnostic Findings EKG: report reviewed CT scan - abdomen: report reviewed Assessment and Plan Assessment: 73-year-old female admitted with: * Acute left hemiparesis, possible embolic. No large vessel occlusion noted on CTA of head. * Acute encephalopathy, severe, possible toxic metabolic, partly related to medications. * Bilateral ICA stenosis, moderate to severe (60-80%) right side, mild to moderate (50-60%) on the left ICA. * Acute non-STEMI * CHF * Acute hypercapnic respiratory failure, secondary to narcotics * COPD * Hypertension * Remote history of breast cancer, in remission Plan: Repeat computed tomography scan of the head to evaluate for any large evolving stroke. Probably will need cardiac catheterization to evaluate for acute CO. She may go for cardiac cath, if computed tomography scan does not show any obvious large stroke. However examination is limited due to recently receiving sedatives as mentioned above. CTA of head and neck showed no occlusion of the intracranial vessels. Suggest vascular surgical consultation for moderate to severe right ICA stenosis, possible symptomatic Stat EEG. Aspirin 300 milligrams rectally stat. Other medical/cardio-pulmonary management as per respective specialists. Discussed with patient's and sister in detail.
[2019-01-31] MEDS ORDERED: ASPIRIN 300 MG SUPP RECTAL SCH (11:15)
--- NOTE | 2019-01-31 11:25 | CT ---
EXAMINATION TYPE: CT brain wo con DATE OF EXAM: 01/31/2019 HISTORY: Left arm flaccid, non responsive CT DLP: 1101.4 mGycm. Automated Exposure Control for Dose Reduction was Utilized. TECHNIQUE: CT scan of the head is performed without contrast. COMPARISON: CT brain earlier today. FINDINGS: Endotracheal tube and orogastric tube are now identified on localizer. There is no acute intracranial hemorrhage or midline shift identified. There is diffuse ventricular and sulcal prominen ce consistent with diffuse age-related cerebral atrophy. There is low-attenuation in the periventric ular white matter consistent with chronic small vessel ischemic change. There is right sided sulcal effacement with rosa-white blurring involving nearly entire brain parenchyma most prominent frontal p arietal levels with relative sparing along the interhemispheric fissure is best seen superiorly but f ocal prominent involvement inferiorly right parietal occipital region axial image 29 is also identifi ed. Old infarct left cerebellar hemisphere superiorly axial image 18 is redemonstrated. The globes ar e intact and the visualized sinuses are clear. IMPRESSION: No acute intracranial hemorrhage or midline shift. There is mild to moderate diffuse ag e-related cerebral atrophy and moderate chronic small vessel ischemic change as well as old left cere bellar infarct are redemonstrated. There is however new evolving acute large right-sided hemispheric infarct on current CT versus CT a few hours earlier. A Yellow level critical message alert has been initiated for Brenna Flores MD via the [employer] Critical Results System on 01/31/2019 11:22 AM. This message alert has been sent to Brenna christopher MD via the preferences provided by the clinician for the receipt of Radiology Critical Finding s. Message ID [id number].
[2019-01-31] MEDS ORDERED: PROPOFOL 1,000 MG in EMPTY BAG 1 BAG IV SCH (11:45)
[2019-01-31 11:57] LABS: Glucose,Whole Blood 133 mg/dL (75-99)
--- NOTE | 2019-01-31 12:24 | P.PN ---
Progress Note - Text Progress Note Date: 01/31/19 Patient's computed tomography scan of the head revealed a new evolving acute large right-sided hemispheric infarct on the current CT. No hemorrhage seen. Informed the results to patient's and sister. Patient at risk for malignant cerebral edema. The patient needs to be evaluated by neurosurgery. Discussed with attending, and patient will be transferred to [facility]. However her insurance does not accept [facility], therefore patient will be transferred to [facility]. Kimberly Solis MD
--- NOTE | 2019-01-31 12:41 | P.CRDCN ---
History of Present Illness Consult date: 01/31/19 Chief complaint: Abdominal discomfort/change in mental status History of present illness: This is a 73-year-old female patient who I asked to see for further evaluation off abnormal cardiac enzymes as well as abdominal discomfort. I came in to see the patient in the intensive care unit but the patient currently is intubated and on mechanical ventilation and the history was taken from the chart as well as from the nurse taking care of the patient and also from the patient's was bedside. Apparently the patient presented to the emergency room here at [facility] a few weeks ago with abdominal discomfort and at that point she underwent an extensive workup including a computed tomography scan of the abdomen and pelvis, multiple blood work, as well as multiple testing and all the workup came in to be unremarkable and the patient was discharged from the emergency room in stable medical condition. This time, the patient was in her usual state of health until earlier today when she developed a worsening abdominal discomfort mainly in the epigastric area. She took her pain medications including narcotics without significant improvement. Ambulance was called and the patient was brought to the emergency room here at [facility]. In the emergency room, the patient was tachycardic and tac hypneic and because of that she was intubated to protect her airways. She was found to be hypotensive and she was started on norepinephrine. Troponin came in to be slightly abnormal. I did review the EKG which revealed sinus rhythm with T-wave inversion in the inferolateral leads and these changes are new compared to her EKG when she was in the hospital a few weeks ago. Initially the plan was to pursue with a heart catheterization. The patient underwent an echocardiogram which revealed severe cardiomyopathy with mid ventricle and apical hypokinesia, findings consistent for severe LAD disease. But subsequently the patient underwent a computed tomography scan of the pain and that revealed possible evolving acute large right sided hemispheric infarct. Because of that the patient is going to be transferred to [facility] for further evaluation and management. The computed tomography scan did not show any evidence of intracranial bleeding. Past Medical History Past Medical History: Cancer, Hypertension Additional Past Medical History / Comment(s): hx breast cancer History of Any Multi-Drug Resistant Organisms: None Reported Past Surgical History: Breast Surgery Additional Past Surgical History / Comment(s): left breast lumpectomy, aj cataracts Past Anesthesia/Blood Transfusion Reactions: No Reported Reaction Past Psychological History: No Psychological Hx Reported Smoking Status: Current every day smoker Past Alcohol Use History: None Reported Past Drug Use History: None Reported - Past Family History Father Family Medical History: Cancer Medications and Allergies Home Medications Medication Instructions Recorded Confirmed Type HYDROcodone/APAP 5-325MG [[place] 1 tab PO Q6HR PRN #12 tab 01/27/19 01/31/19 Rx 5-325] Lisinopril [Zestril] 20 mg PO DAILY 01/27/19 01/31/19 History Omeprazole [PriLOSEC] 20 mg PO AC-BID #60 cap 01/27/19 01/31/19 Rx Allergies Allergy/AdvReac Type Severity Reaction Status Date / Time No Known Allergies Allergy Verified 01/31/19 08:43 Physical Exam Vitals: Vital Signs Temp Pulse Resp BP Pulse Ox 01/31/19 12:00 87 28 H 111/74 94 L 01/31/19 11:45 89 26 H 103/77 95 01/31/19 11:30 88 26 H 101/66 95 01/31/19 11:15 88 24 101/71 01/31/19 10:30 93 26 H 106/68 96 01/31/19 10:15 93 26 H 99/69 01/31/19 10:00 92 27 H 94/68 94 L 01/31/19 09:45 92 26 H 85/63 96 01/31/19 09:30 92 26 H 95/69 94 L 01/31/19 09:15 104 H 20 96/69 89 L 01/31/19 09:00 94 23 96/67 94 L 01/31/19 08:50 92 26 H 96/67 95 01/31/19 08:40 93 22 96/69 94 L 01/31/19 08:30 93 25 H 91/72 01/31/19 08:20 93 24 91/72 95 01/31/19 08:10 93 22 86/64 90 L 01/31/19 08:00 98.2 F 87 22 88/68 96 01/31/19 06:45 97.4 F L 92 20 83/62 93 L 01/31/19 06:33 97.4 F L 91 24 77/61 95 01/31/19 06:24 82 27 H 88/75 91 L 01/31/19 06:01 97.3 F L 94 23 85/42 94 L 01/31/19 05:50 97.3 F L 90 21 65/46 93 L 01/31/19 05:30 91 20 69/53 98 01/31/19 05:20 96 19 74/53 100 01/31/19 05:10 100 20 121/85 100 01/31/19 05:00 109 H 26 H 88/72 80 L 01/31/19 04:58 97.3 F L 106 H 24 82/54 95 01/31/19 04:55 24 01/31/19 04:50 96 24 87/69 96 01/31/19 04:43 144 H 24 136/95 95 01/31/19 04:28 97.7 F 142 H 18 130/110 95 01/31/19 04:22 147 H 26 H 95 01/31/19 04:10 144 H 30 H 134/89 94 L 01/31/19 03:39 97.2 F L 115 H 24 138/95 91 L 01/31/19 02:43 130 H 24 134/88 96 01/31/19 02:36 120 H 18 01/31/19 02:27 118 H 18 01/31/19 02:16 97.0 F L 116 H 26 H 129/80 94 L Intake and Output 01/30/19 01/31/19 01/31/19 22:59 06:59 14:59 Intake Total 6.244 575 Output Total 400 210 Balance -393.756 365 Intake: IV 350 Piperacillin-Tazobactam 3 100 .375 gm In Sodium Chloride 0.9% 100 ml @ 25 mls/hr IVPB Q12HR AR Rx #:[id number] Sodium Chloride 0.9% 1, 250 000 ml @ 125 mls/hr IV . Q8H AR Rx#:[id number] Intake, IV Titration 6.244 225 Amount Norepinephrine 4 mg In 5.654 Sodium Chloride 0.9% 250 ml @ 0.05 MCG/KG/MIN 11. 233 mls/hr IV .[id number] ONE Rx#:[id number] Propofol 1,000 mg In 0.59 Empty Bag 1 bag @ Titrate IV .Q0M ONE Rx#: [id number] Sodium Chloride 0.9% 1, 225 000 ml @ 75 mls/hr IV . [id number] [facility] Rx#:[id number] Output: Urine 400 210 Uretheral (Perez) 400 Other: Weight 58.967 kg ABP, PAP, CO, CI - Last 8 Hours Arterial Blood Pressure 118/70 Arterial Blood Pressure 119/72 Arterial Blood Pressure 129/68 Arterial Blood Pressure 112/69 Arterial Blood Pressure 110/65 Arterial Blood Pressure 118/70 Arterial Blood Pressure 107/65 Arterial Blood Pressure 106/65 Arterial Blood Pressure 94/59 Arterial Blood Pressure 109/63 Arterial Blood Pressure 108/67 Arterial Blood Pressure 102/64 - Constitutional General appearance: no acute distress - Respiratory Respiratory: bilateral: diminished - Cardiovascular Rhythm: regular Heart sounds: normal: S1, S2 Abnormal Heart Sounds: systolic murmur Results 01/31/19 02:20 01/31/19 05:52 Cardiac Enzymes 01/31/19 01/31/19 01/31/19 Range/Units 02:20 02:20 05:52 AST 24 (14-36) U/L Troponin I 0.068 H* 0.769 H* (0.000-0.034) ng/mL 01/31/19 Range/Units 05:52 AST 15 (14-36) U/L Troponin I (0.000-0.034) ng/mL Coagulation 01/31/19 Range/Units 02:20 PT 9.6 (9.0-12.0) sec APTT 22.5 (22.0-30.0) sec CBC 01/31/19 Range/Units 02:20 WBC 15.6 H (3.8-10.6) k/uL RBC 4.26 (3.80-5.40) m/uL Hgb 14.1 (11.4-16.0) gm/dL Hct 43.2 (34.0-46.0) % Plt Count 358 (150-450) k/uL Comprehensive Metabolic Panel 01/31/19 01/31/19 Range/Units 02:20 05:52 Sodium 136 L 138 (137-145) mmol/L Potassium 4.2 3.6 (3.5-5.1) mmol/L Chloride 100 108 H (98-107) mmol/L Carbon Dioxide 26 23 (22-30) mmol/L BUN 10 9 (7-17) mg/dL Creatinine 0.43 L 0.47 L (0.52-1.04) mg/dL Glucose 127 H 182 H (74-99) mg/dL Calcium 9.9 7.2 L (8.4-10.2) mg/dL AST 24 15 (14-36) U/L ALT 13 20 (9-52) U/L Alkaline Phosphatase 83 50 (38-126) U/L Total Protein 7.8 4.7 L (6.3-8.2) g/dL Albumin 4.6 2.6 L (3.5-5.0) g/dL Current Medications Generic Name Dose Route Start Last Admin Trade Name Freq PRN Reason Stop Dose Admin Albuterol/Ipratropium 3 ml 01/31/19 06:07 Duoneb 0.5 Mg-3 Mg/3 Ml Soln INHALATION RT-Q4H PRN Shortness Of Breath Or Wheezing Artificial Tears 1 drops 01/31/19 06:07 Artificial Tear Drops BOTH EYES Q4HR PRN Dry Eye(s) Aspirin 300 mg 01/31/19 11:15 01/31/19 12:21 Aspirin RECTAL 300 mg DAILY AR Administration Chlorhexidine Gluconate 15 ml 01/31/19 21:00 Peridex MUCOUS MEM BID AR Levetiracetam 1,000 mg/ IV 100 mls @ 400 mls/hr 01/31/19 06:00 01/31/19 05:31 Solution IVPB 400 mls/hr Q12H AR Administration Piperacillin Sod/Tazobactam 100 mls @ 25 mls/hr 01/31/19 09:00 01/31/19 10:24 Sod 3.375 gm/ Sodium Chloride IVPB 25 mls/hr Q12HR AR Administration Sodium Chloride 1,000 mls @ 125 mls/hr 01/31/19 09:15 01/31/19 10:24 Saline 0.9% IV 125 mls/hr .Q8H AR Administration Norepinephrine Bitartrate 32 250 mls @ 1.382 mls/hr 01/31/19 11:00 01/31/19 11:30 mg/ Sodium Chloride IV 0.3 mcg/kg/min .Q24H AR 8.292 mls/hr Administration Protocol 0.05 MCG/KG/MIN Propofol 1,000 mg/ IV Solution 100 mls @ 0 mls/hr 01/31/19 11:45 IV .Q0M AR Protocol Titrate Metoprolol Tartrate 2.5 mg 01/31/19 04:45 01/31/19 12:21 Lopressor IVP Not Given Q5M AR Naloxone HCl 0.2 mg 01/31/19 06:07 Narcan IV Q2M PRN Opioid Reversal Pantoprazole Sodium 40 mg 01/31/19 09:00 01/31/19 10:24 Protonix IV 40 mg DAILY AR Administration Intake and Output 01/30/19 01/31/19 01/31/19 22:59 06:59 14:59 Intake Total 6.244 575 Output Total 400 210 Balance -393.756 365 Intake: IV 350 Piperacillin-Tazobactam 3 100 .375 gm In Sodium Chloride 0.9% 100 ml @ 25 mls/hr IVPB Q12HR AR Rx #:[id number] Sodium Chloride 0.9% 1, 250 000 ml @ 125 mls/hr IV . Q8H AR Rx#:[id number] Intake, IV Titration 6.244 225 Amount Norepinephrine 4 mg In 5.654 Sodium Chloride 0.9% 250 ml @ 0.05 MCG/KG/MIN 11. 233 mls/hr IV .[id number] ONE Rx#:[id number] Propofol 1,000 mg In 0.59 Empty Bag 1 bag @ Titrate IV .Q0M ONE Rx#: [id number] Sodium Chloride 0.9% 1, 225 000 ml @ 75 mls/hr IV . [id number] AR Rx#:[id number] Output: Urine 400 210 Uretheral (Perez) 400 Other: Weight 58.967 kg 01/31/19 02:20 01/31/19 05:52 Assessment and Plan Assessment: Assessment #1 acute respiratory failure #2 change in mental status #3 abdominal discomfort of unknown etiology. #4 acute coronary syndrome #5 significant history of smoking #6 stroke #7 multiple comorbid conditions Plan #1 the patient is in process to be transferred to [facility] #2 the echocardiogram was reviewed and revealed severe cardiomyopathy #3 the patient will be seen and evaluated at [facility]. Thank you for allowing us participate in her care and we will continue following up with the base
--- NOTE | 2019-01-31 12:47 | ECHOF ---
Referral Reason:elevated troponins MEASUREMENTS -------- HEIGHT: 162.6 cm WEIGHT: 59.0 kg BP: 108/66 IVSd: 1.3 cm (0.6 - 1.1) LVIDd: 3.5 cm (3.9 - 5.3) LVPWd: 1.3 cm (0.6 - 1.1) IVSs: 1.6 cm LVIDs: 2.4 cm LVPWs: 1.4 cm LA Diam: 2.7 cm (2.7 - 3.8) RVIDd: 3.3 cm (< 3.3) LAESV Index (A-L): 25.98 ml/m Ao Diam: 2.1 cm (2.0 - 3.7) AV Cusp: 1.7 cm (1.5 - 2.6) EPSS: 0.9 cm MV E Estuardo: 0.63 m/s MV DecT: 224 ms MV A Estuardo: 0.86 m/s MV E/A Ratio: 0.73 RAP: 5.00 mmHg RVSP: 40.75 mmHg MV EF SLOPE: 47.54 mm/s (70 - 150) MV EXCURSION: 15.51 mm (> 18.000) FINDINGS -------- Sinus rhythm. This was a technically good study. The left ventricular size is normal. There is mild concentric left ventricular hypertrophy. Overa ll left ventricular systolic function is moderately impaired with, an EF between 35 - 40 %. Mid ant erior LV wall motion is hypokinetic. Mid lateral LV wall motion is hypokinetic. Mid inferior LV wall motion is hypokinetic. Mid inferoseptal LV wall motion is hypokinetic. Mid anteroseptal L V wall motion is hypokinetic. Apical anterior LV wall motion is hypokinetic. Apical lateral LV wall motion is hypokinetic. Apical inferior LV wall motion is hypokinetic. Apical septum LV wal l motion is hypokinetic. The right ventricle is mildly enlarged. Normal LA size by volume 22+/-6 ml/m2. The right atrium is normal in size. There is mild aortic valve sclerosis. The mitral valve leaflets are mildly thickened. Mild mitral annular calcification present. Mild tricuspid regurgitation present. There is mild pulmonary hypertension. The right ventricular systolic pressure, as measured by Doppler, is 40.75mmHg. Trace/mild (physiologic) pulmonic regurgitation. The aortic root size is normal. Normal inferior vena cava with less than 50% inspiratory collapse consistent with estimated right atr ial pressure of 15 mmHg. The pericardium is normal. CONCLUSIONS -------- 1. Sinus rhythm. 2. This was a technically good study. 3. The left ventricular size is normal. 4. There is mild concentric left ventricular hypertrophy. 5. Overall left ventricular systolic function is moderately impaired with, an EF between 35 - 40 %. 6. Mid anterior LV wall motion is hypokinetic. 7. Mid lateral LV wall motion is hypokinetic. 8. Mid inferior LV wall motion is hypokinetic. 9. Mid inferoseptal LV wall motion is hypokinetic. 10. Mid anteroseptal LV wall motion is hypokinetic. 11. Apical anterior LV wall motion is hypokinetic. 12. Apical lateral LV wall motion is hypokinetic. 13. Apical inferior LV wall motion is hypokinetic. 14. Apical septum LV wall motion is hypokinetic. 15. The right ventricle is mildly enlarged. 16. Normal LA size by volume 22+/-6 ml/m2. 17. The right atrium is normal in size. 18. There is mild aortic valve sclerosis. 19. The mitral valve leaflets are mildly thickened. 20. Mild mitral annular calcification present. 21. Mild tricuspid regurgitation present. 22. There is mild pulmonary hypertension. 23. The right ventricular systolic pressure, as measured by Doppler, is 40.75mmHg. 24. Trace/mild (physiologic) pulmonic regurgitation. 25. The aortic root size is normal. 26. Normal inferior vena cava with less than 50% inspiratory collapse consistent with estimated right atrial pressure of 15 mmHg. 27. The pericardium is normal. WORK STATION SUPPORT SPECIALIST: Fay Hassan RDCS
[2019-01-31 13:04] VITALS: RESP 26
[2019-01-31 14:34] VITALS: BMI 22.3
--- NOTE | 2019-01-31 14:41 | HP ---
HISTORY AND PHYSICAL HISTORY AND PHYSICAL/DISCHARGE SUMMARY: DATE OF SERVICE: 01/31/2019. CHIEF COMPLAINTS: Multiple chief complaints including shortness of breath, abdominal pain and weakness. HISTORY OF PRESENT ILLNESS: This is a 73-year-old woman with a past medical history of multiple medical problems including hypertension, history of breast cancer, history of lumpectomy being followed by Dr. Owen. The patient is admitted with UTI. Patient presented to the ER previously with abdominal pain, treated symptomatically. Currently, the patient had persistent abdominal pain and also some left-sided weakness also noted. Patient was given some morphine. Patient has respiratory failure. Patient is intubated. Patient also had significant weakness of the left side of the body and the patient had repeat CAT scan of the brain, today, this morning which showed significant stroke changes in the evolving large right-sided hemispheric infarct was noted and the Neurology, evaluated the patient. Recommended the patient be transferred to a tertiary neurological center and [facility]yrus[facility] Pérez is being contacted for that same purpose. Currently, the patient mechanically intubated, her blood pressure is maintained and Dr. Shafer is following the patient closely. The patient's troponin was also elevated on admission. PAST MEDICAL HISTORY: History of hypertension, history of breast cancer, lumpectomy. MEDICATIONS: Prior to admission include: 1. Prilosec 20 mg b.i.d. 2. Zestril 20 mg b.i.d. 3. [place] 5 mg q.i.d. p.r.n. ALLERGIES: None. FAMILY HISTORY, SOCIAL HISTORY, REVIEW OF SYSTEMS: Could not be taken because the patient mechanically intubated. Family history of cancer per the chart and history of smoking. Continues ongoing smoking. PHYSICAL EXAM: Patient is mechanically intubated. Pulse 86, blood pressure 106/73, respiration 20, temperature is normal. Pulse ox 94% on ventilation Vent settings are noted. HEENT: Conjunctivae normal, oral mucosa moist. NECK: Pupils are equal. NECK: No jugular venous distention. No lymph node enlargement. CARDIOVASCULAR: S1, S2 muffled, no S3, no S4. RESPIRATION: Breath sounds diminished at the bases, a few scattered rhonchi. No crackles. ABDOMEN: Soft, nontender. No mass palpable. No edema, no cyanosis. NERVOUS SYSTEM: As mentioned earlier. This could not be evaluated because the patient mechanically intubated and sedated. SKIN: No ulcer, rash, bleeding. JOINTS: No active arthropathy. LYMPHATICS: No lymph node. . LAB: Investigations are ABGs noted, pH is 7.24, WBC is 15.6, sodium 138, potassium 3.6. Lactic acid is 2.6. Troponin is 0.769. ASSESSMENT: 1. Acute massive right hemispheric stroke causing left-sided weakness. 2. Acute hypoxic respiratory failure on mechanical ventilation. 3. Increased WBC. 4. Possible cardiomyopathy with ejection fraction 35% to 40%. 5. Increased MCV. 6. Respiratory acidosis. 7. Increased plasma lactic acid. 8. Troponin 0.769, possible acute non ST-segment myocardial infarction. 9. Abdominal pain. 10.Hypertension. 11.History of breast cancer. 12.History of lumpectomy. 13.History of continued ongoing nicotine dependence. 14.FULL CODE. RECOMMENDATION: In this 73-year-old woman who presented with multiple medical issues. Currently, the patient has been started on antiplatelet agents. The patient was also given bronchodilators and a course of steroids also, broad-spectrum IV antibiotics has been given. Cultures are obtained. Otherwise, the patient is on Levophed drip. The 2D echo showed ejection fraction of 35%-40% and significant diffuse hypokinesia. The patient evaluated by multiple consultants. Please refer to the multiple office 365 consultant's notes and progress note for further details and as per Dr. Ntahalie Shafer's recommendation, patient will be transferred to [facility] for further evaluation and treatment for neuro ICU. Discussed at length with the family. A copy of this will forwarded to Dr. Owen who is the primary physician. MMODL / IJN: [id number] / MELINA
[2019-01-31 15:11] VITALS: BP 107/74; PULSE 89
[2019-01-31] MEDS ORDERED: CHLORHEXIDINE GLUCONATE 15 ML CUP MUCOUS MEM SCH (21:00)
--- NOTE | 2019-02-01 07:55 | PCN ---
PROCEDURE NOTE PLACEMENT OF THE LEFT RADIAL ARTERIAL LINE: PREOPERATIVE DIAGNOSIS: Acute hypoxic respiratory failure, hypotension, acute cerebrovascular accident. POSTOPERATIVE DIAGNOSIS: Acute hypoxic respiratory failure, hypotension, acute cerebrovascular accident. ANESTHESIA USED: None deployed. PROCEDURE: The left wrist was prepared in a sterile fashion and drapes were applied. The left radial artery was palpated, cannulated, and a guidewire was placed. A Cook catheter was inserted over the guidewire, and the guidewire was removed. Good blood flow and good waveform were noted, no evidence of any immediate complication. MMODL / IJN: [id number] /
== END 2019-01-31 15:11 | disposition short-term general hospital (02) | DRG 64 ==
LOC: EC 02:10 → 2SICU 06:07
PROVIDERS: ADMIT Internal Medicine; ATTEND Internal Medicine
PROC: 03HY32Z Insertion of Monitoring Device into Upper Artery, Percutaneous Approach (ICD-10-PCS; principal; 2019-01-31)
PROC: 4A133B1 Monitoring of Arterial Pressure, Peripheral, Percutaneous Approach (ICD-10-PCS; 2019-01-31)
PROC: 4A133J1 Monitoring of Arterial Pulse, Peripheral, Percutaneous Approach (ICD-10-PCS; 2019-01-31)
PROC: 06HM33Z Insertion of Infusion Device into Right Femoral Vein, Percutaneous Approach (ICD-10-PCS; 2019-01-31)
PROC: 0BH17EZ Insertion of Endotracheal Airway into Trachea, Via Natural or Artificial Opening (ICD-10-PCS; 2019-01-31)
PROC: 5A1935Z Respiratory Ventilation, Less than 24 Consecutive Hours (ICD-10-PCS; 2019-01-31)
DX: I63.233 Cerebral infarction due to unspecified occlusion or stenosis of bilateral carotid arteries (principal); J96.01 Acute respiratory failure with hypoxia; J96.02 Acute respiratory failure with hypercapnia; I21.4 Non-ST elevation (NSTEMI) myocardial infarction; G92 Toxic encephalopathy; E87.2 Acidosis; I43 Cardiomyopathy in diseases classified elsewhere; G81.04 Flaccid hemiplegia affecting left nondominant side; N39.0 Urinary tract infection, site not specified; J44.9 Chronic obstructive pulmonary disease, unspecified; I95.9 Hypotension, unspecified; I50.9 Heart failure, unspecified; I11.0 Hypertensive heart disease with heart failure; I11.9 Hypertensive heart disease without heart failure; F17.200 Nicotine dependence, unspecified, uncomplicated; T40.2X5A Adverse effect of other opioids, initial encounter; I49.1 Atrial premature depolarization; R00.0 Tachycardia, unspecified; I25.10 Atherosclerotic heart disease of native coronary artery without angina pectoris; Z85.3 Personal history of malignant neoplasm of breast; Z79.899 Other long term (current) drug therapy; Z98.42 Cataract extraction status, left eye; Z98.41 Cataract extraction status, right eye; Z80.9 Family history of malignant neoplasm, unspecified
CPT/HCPCS: 31500; 36415; 36556; 36600; 70450; 70496; 70498; 71045; 71046; 71275; 74018; 80053; 81001; 82150; 82805; 83605; 83690; 84484; 85025; 85610; 85730; 87070; 87205; 93306; 94002; 94640; 96361; 96365; 96375; 99291